=== PATIENT | male | born 1960 | race Caucasian/White ===

== ENCOUNTER 2021-03-18 12:02 | Inpatient (IN) ==
[2021-03-18] MEDS ORDERED: IOPAMIDOL 100 ML BOTTLE IV ONE (12:03)
[2021-03-18] MEDS ORDERED: ONDANSETRON 4 MG/2 ML VIAL IV ONE (12:09)
[2021-03-18] MEDS ORDERED: 0.9 % SODIUM CHLORIDE 1,000 ML IV ONE ×2 (12:09→14:41)
--- NOTE | 2021-03-18 12:36 | Emergency Department Note ---
HPI General Chief complaint: Nausea/Vomiting/Diarrhea Stated complaint: n/v/d Time Seen by Provider: 03/18/21 12:08 Source: patient Mode of arrival: ambulatory Limitations: no limitations History of Present Illness HPI Narrative: This is a 60-year-old male with a medical history significant only for hypothyroidism on levothyroxine who presents with 4 days of nausea and vomiting. No previous abdominal surgeries. No significant complaints of abdominal pain. No complaints of heartburn. Denies chest pain. Denies shortness of breath or cough. Denies fever/chills/sweats. On presentation his O2 sats were high 70s on room air. He is now satting 94% on 2 L oxygen nasal cannula. Was seen by his PCP on 03/13/2021 for complaints of previous 5 days of nausea/vomiting/diarrhea. Covid serologies were negative. He also had a negative Covid antigen test at that time per chart review. His initial Covid swab is negative here, but given his chest x-ray this was repeated and a second swab is positive. Nursing thought that the initial swab was not collected properly due to the patient's nasal cavity being very dry. Patient has mottling to the bilateral lower extremities and petechial rash to the volar aspect of the bilateral forearms. He states that this has been coming and going over the last few months to weeks. He denies a history of peripheral vascular disease or vasculitis. Denies a history of coagulopathies or hypercoagulable state. Related Data Home Medications Medication Instructions Recorded Confirmed levothyroxine 125 mcg capsule 125 mcg PO QDAY 03/13/21 03/18/21 Allergies Allergy/AdvReac Type Severity Reaction Status Date / Time No Known Drug Allergies Allergy Verified 03/18/21 17:03 hay fever Allergy Unknown allergies Uncoded 03/13/21 07:57 Review of Systems ROS ROS Narrative: Narrative: All systems ED: reviewed and negative except as stated. [facility] Narrative Patient History Narrative: Narrative: Medical/Surgical/Family History All Active Problems Prediabetes (Chronic) Wellness examination (Acute) Viral gastroenteritis (Acute) Cellulitis of left leg (Acute) Hypothyroidism (Chronic) Chronic dermatitis (Chronic) History of tobacco abuse (Chronic) History of cervical fracture (Chronic) Medical History Chronic dermatitis Dental abscess History of cervical fracture History of tobacco abuse Hypothyroidism Joint pain (~1999) Prediabetes URI, acute Surgical History No pertinent past surgical history Family History Father Colon cancer Prostate cancer Mother Stroke Social History Smoking Status: Former smoker Alcohol Intake Frequency: does not drink Substance Use: does not use Exam Narrative Narrative: General: AOx3, NAD, nontoxic appearing. Pleasant and conversant. HEENT: PERRLA, EOMI, normocephalic. Moist mucous membranes. Normal facies. Chest: Symmetric, no pain to palpation Respiratory: Bilateral crackles throughout all lung sam. No respiratory distress. Unlabored breathing. Oxygen sats are 88% on 2 L nasal cannula with good Pleth waveform. Heart: Regular rate and rhythm, no murmurs/clicks/rubs. Abdomen: Generalized abdominal pain, no peritoneal signs, non distended, normal bowel tones. No organomegaly. Extremities: Mottling noted to the bilateral lower extremities. Clubbing noted to the bilateral fingers (patient states this is chronic). Bilateral forearms with what appears to be a petechial rash. No LE extremity edema. DP 2+ bilaterally. No venous stasis. Neuro: No focal deficits. Cranial nerves II-XII normal. Skin: Warm dry, no rashes or lesions, no cyanosis. Psych: Normal mood and affect Heme/Lymph: As above General Limitations: no limitations Course Course Course Narrative: 60-year-old male presents with intractable nausea and vomiting x 4 days and hypoxia Reevaluation(s) Reevaluation #1: Obtain chest x-ray, basic lab work, troponin, UA Given his petechial rash will check fibrinogen, coagulation studies, CRP and sed rate Time: 14:15 Reevaluation #2: Chest x-ray is read as normal; however, to me this appears to have bilateral patchy opacities throughout the lung sam. This to be consistent with his clinical exam of diffuse crackles. D-dimer is elevated as well as fibrinogen. A CTA is pending to rule out PE. CBC with slightly low white blood cell count of 4100. Patient's white blood cell count was 3200 on 03/13/2021. Patient is hyponatremic with a sodium of 127. He is receiving IV fluids with normal saline. LFTs are mildly elevated. Troponin is less than 0.01 , and CRP is elevated at 3.8. At this time we will start dexamethasone 6 mg IV. Awaiting CTA and will plan on calling the hospitalist for admission as patient meets inpatient criteria for severe COVID. Vital Signs Vital signs: Vital Signs Temperature 97.3 F 03/18/21 12:04 Pulse Rate 88 03/18/21 12:04 Respiratory Rate 18 03/18/21 12:04 Blood Pressure 156/81 03/18/21 12:04 Pulse Oximetry (%) 81 L 03/18/21 12:04 Temperature 97.2 F 03/18/21 20:01 Pulse Rate 74 03/18/21 22:01 Respiratory Rate 28 H 03/18/21 22:01 Blood Pressure 124/74 03/18/21 22:01 Pulse Oximetry (%) 92 03/18/21 22:01 MDM MDM Narrative Medical decision making narrative: Severe COVID-19 infection Hypoxia Hyponatremia Meets inpatient criteria for admission and initiation of pharmacological therapies for severe COVID-19 infection. Hospitalist has accepted the patient for admission. Lab Data Result diagrams: 03/18/21 12:25 03/18/21 12:25 Labs: Lab Results 03/18/21 03/18/21 03/18/21 Range/Units 12:10 12:10 12:25 WBC 4.1 L (4.5-11.0) K/mcL RBC 5.69 (4.50-5.90) M/mcL Hgb 15.7 (13.5-16.5) g/dL Hct 48.3 (41.0-55.0) % MCV 84.9 (80.0-100.0) fL MCH 27.6 (26.0-34.0) pg MCHC 32.5 (31.0-36.0) g/dL RDW 14.8 H (11.5-14.5) % Plt Count 223 (140-440) K/mcL MPV 10.9 H (7.4-10.4) fL Neut % (Auto) 86.0 H (38.0-78.0) % Lymph % (Auto) 7.4 L (15.0-49.0) % Burke % (Auto) 6.4 (1.0-12.0) % Eos % (Auto) 0 (0.0-7.0) % Baso % (Auto) 0.2 (0.0-2.0) % Lymph # (Auto) 0.30 L (1.50-4.80) K/mcL Burke # (Auto) 0.26 (0.10-0.90) K/mcL Eos # (Auto) 0 (0.00-0.70) K/mcL Baso # (Auto) 0.01 (0.00-0.20) K/mcL Absolute Neutrophils 3.48 (1.80-8.00) K/mcL ESR 10 (0-15) mm/hr PT (11.9-14.5) sec INR (0.9-1.1) Fibrinogen (200-400) mg/dL D-Dimer (0.27-0.50) ug/mL Sodium (133-145) mmol/L Potassium (3.3-5.1) mmol/L Chloride (96-108) mmol/L Carbon Dioxide (22-30) mmol/L Anion Gap (8.0-16.0) BUN (6-20) mg/dL Creatinine (0.7-1.2) mg/dL POC Creatinine 0.8 (0.6-1.2) mg/dL GFR Calculation Glucose (70-105) mg/dL Calcium (8.6-10.4) mg/dL Total Bilirubin (0.1-1.0) mg/dL AST (<40) U/L ALT (<40) U/L Alkaline Phosphatase (39-117) U/L Troponin T (<0.03) ng/mL C-Reactive Protein 3.80 H (0.03-0.80) mg/dL NT-Pro-B Natriuret Pep 529.6 H (<125.0) pg/mL Total Protein (5.9-8.4) gm/dL Albumin (3.2-5.2) gm/dL Globulin (2.2-3.7) gm/dL Albumin/Globulin Ratio (1.0-2.3) Procalcitonin (<0.10) ng/mL Urine Color Urine Appearance (Clear) Urine pH (5.0-9.0) Ur Specific [place] (1.000-1.035) Urine Protein (Negative) mg/dL Urine Glucose (UA) (Negative) mg/dL Urine Ketones (Negative) mg/dL Urine Occult Blood (Negative) mg/dL Urine Nitrate (Negative) Urine Bilirubin (Negative) mg/dL Urine Urobilinogen mg/dL Ur Leukocyte Esterase (Negative) /ug Urine RBC (0-3) /hpf Urine WBC (0-4) /hpf Ur Squamous Epith Cells (0-4) /hpf Urine Bacteria (0) /hpf Urine Mucus (None) /hpf Ur Culture Indicated? 03/18/21 03/18/21 03/18/21 Range/Units 12:25 12:25 12:25 WBC (4.5-11.0) K/mcL RBC (4.50-5.90) M/mcL Hgb (13.5-16.5) g/dL Hct (41.0-55.0) % MCV (80.0-100.0) fL MCH (26.0-34.0) pg MCHC (31.0-36.0) g/dL RDW (11.5-14.5) % Plt Count (140-440) K/mcL MPV (7.4-10.4) fL Neut % (Auto) (38.0-78.0) % Lymph % (Auto) (15.0-49.0) % Burke % (Auto) (1.0-12.0) % Eos % (Auto) (0.0-7.0) % Baso % (Auto) (0.0-2.0) % Lymph # (Auto) (1.50-4.80) K/mcL Burke # (Auto) (0.10-0.90) K/mcL Eos # (Auto) (0.00-0.70) K/mcL Baso # (Auto) (0.00-0.20) K/mcL Absolute Neutrophils (1.80-8.00) K/mcL ESR (0-15) mm/hr PT 12.6 (11.9-14.5) sec INR 0.9 (0.9-1.1) Fibrinogen (200-400) mg/dL D-Dimer 1.31 H (0.27-0.50) ug/mL Sodium 127 L (133-145) mmol/L Potassium 4.1 (3.3-5.1) mmol/L Chloride 88 L (96-108) mmol/L Carbon Dioxide 29 (22-30) mmol/L Anion Gap 10.0 (8.0-16.0) BUN 11 (6-20) mg/dL Creatinine 0.8 (0.7-1.2) mg/dL POC Creatinine (0.6-1.2) mg/dL GFR Calculation 97 Glucose 116 H (70-105) mg/dL Calcium 8.0 L (8.6-10.4) mg/dL Total Bilirubin 0.5 (0.1-1.0) mg/dL AST 63 H (<40) U/L ALT 52 H (<40) U/L Alkaline Phosphatase 139 H (39-117) U/L Troponin T < 0.01 (<0.03) ng/mL C-Reactive Protein (0.03-0.80) mg/dL NT-Pro-B Natriuret Pep (<125.0) pg/mL Total Protein 6.3 (5.9-8.4) gm/dL Albumin 3.1 L (3.2-5.2) gm/dL Globulin 3.2 (2.2-3.7) gm/dL Albumin/Globulin Ratio 1.0 (1.0-2.3) Procalcitonin (<0.10) ng/mL Urine Color Urine Appearance (Clear) Urine pH (5.0-9.0) Ur Specific [place] (1.000-1.035) Urine Protein (Negative) mg/dL Urine Glucose (UA) (Negative) mg/dL Urine Ketones (Negative) mg/dL Urine Occult Blood (Negative) mg/dL Urine Nitrate (Negative) Urine Bilirubin (Negative) mg/dL Urine Urobilinogen mg/dL Ur Leukocyte Esterase (Negative) /ug Urine RBC (0-3) /hpf Urine WBC (0-4) /hpf Ur Squamous Epith Cells (0-4) /hpf Urine Bacteria (0) /hpf Urine Mucus (None) /hpf Ur Culture Indicated? 03/18/21 03/18/21 03/18/21 Range/Units 12:25 12:25 14:35 WBC (4.5-11.0) K/mcL RBC (4.50-5.90) M/mcL Hgb (13.5-16.5) g/dL Hct (41.0-55.0) % MCV (80.0-100.0) fL MCH (26.0-34.0) pg MCHC (31.0-36.0) g/dL RDW (11.5-14.5) % Plt Count (140-440) K/mcL MPV (7.4-10.4) fL Neut % (Auto) (38.0-78.0) % Lymph % (Auto) (15.0-49.0) % Burke % (Auto) (1.0-12.0) % Eos % (Auto) (0.0-7.0) % Baso % (Auto) (0.0-2.0) % Lymph # (Auto) (1.50-4.80) K/mcL Burke # (Auto) (0.10-0.90) K/mcL Eos # (Auto) (0.00-0.70) K/mcL Baso # (Auto) (0.00-0.20) K/mcL Absolute Neutrophils (1.80-8.00) K/mcL ESR (0-15) mm/hr PT (11.9-14.5) sec INR (0.9-1.1) Fibrinogen 501 H (200-400) mg/dL D-Dimer (0.27-0.50) ug/mL Sodium (133-145) mmol/L Potassium (3.3-5.1) mmol/L Chloride (96-108) mmol/L Carbon Dioxide (22-30) mmol/L Anion Gap (8.0-16.0) BUN (6-20) mg/dL Creatinine (0.7-1.2) mg/dL POC Creatinine (0.6-1.2) mg/dL GFR Calculation Glucose (70-105) mg/dL Calcium (8.6-10.4) mg/dL Total Bilirubin (0.1-1.0) mg/dL AST (<40) U/L ALT (<40) U/L Alkaline Phosphatase (39-117) U/L Troponin T (<0.03) ng/mL C-Reactive Protein (0.03-0.80) mg/dL NT-Pro-B Natriuret Pep (<125.0) pg/mL Total Protein (5.9-8.4) gm/dL Albumin (3.2-5.2) gm/dL Globulin (2.2-3.7) gm/dL Albumin/Globulin Ratio (1.0-2.3) Procalcitonin 0.20 H (<0.10) ng/mL Urine Color Yellow Urine Appearance Hazy A (Clear) Urine pH 6.0 (5.0-9.0) Ur Specific [place] 1.046 (1.000-1.035) Urine Protein Negative (Negative) mg/dL Urine Glucose (UA) Negative (Negative) mg/dL Urine Ketones 20 A (Negative) mg/dL Urine Occult Blood 0.03 (Negative) mg/dL Urine Nitrate Negative (Negative) Urine Bilirubin Negative (Negative) mg/dL Urine Urobilinogen 4.0 A mg/dL Ur Leukocyte Esterase Negative (Negative) /ug Urine RBC 3 (0-3) /hpf Urine WBC 5 H (0-4) /hpf Ur Squamous Epith Cells 0 (0-4) /hpf Urine Bacteria None (0) /hpf Urine Mucus Few A (None) /hpf Ur Culture Indicated? No ED POC Tests ED POC Tests: MANISHA - SARS Antigen Positive Discharge Plan Patient/Caregiver Discharge Instructions Pt seen by OPTIONS TRADER/PA only: Yes Patient Disposition: Xfer As Inpt ([facility]) Discharge Date/Time: 03/18/21 16:30
--- NOTE | 2021-03-18 12:39 | XRay Report ---
CLINICAL INFORMATION: hypoxia COMPARISON: None. FINDINGS: Heart size, mediastinum and pulmonary vessels are normal. Lungs are clear. No effusions. Bones soft tissues normal IMPRESSION: Negative Interpreted and Authenticated by: Jovany Anderson 03/18/21
[2021-03-18 13:23] LABS: POC Creatinine 0.8 mg/dL (0.6-1.2)
[2021-03-18 13:24] LABS: Basophils # (Auto) 0.01 K/mcL (0.00-0.20); Basophils % (Auto) 0.2 % (0.0-2.0); Eosinophils # (Auto) 0 K/mcL (0.00-0.70); Eosinophils % (Auto) 0 % (0.0-7.0); Hematocrit 48.3 % (41.0-55.0); Hemoglobin 15.7 g/dL (13.5-16.5); Lymphocytes % (Auto) 7.4 % (15.0-49.0); Mean Cell Volume 84.9 fL (80.0-100.0); Mean Corpuscular HGB Conc 32.5 g/dL (31.0-36.0); Mean Platelet Volume 10.9 fL (7.4-10.4); Monocytes # (Auto) 0.26 K/mcL (0.10-0.90); Monocytes % (Auto) 6.4 % (1.0-12.0); Platelet Count 223 K/mcL (140-440); RBC 5.69 M/mcL (4.50-5.90); Red Cell Distribution Width 14.8 % (11.5-14.5); WBC 4.1 K/mcL (4.5-11.0)
[2021-03-18 13:50] LABS: proBNP 529.6 pg/mL (<125.0)
[2021-03-18 13:51] LABS: ALT/SGPT 52 U/L (<40); AST/SGOT 63 U/L (<40); Albumin 3.1 gm/dL (3.2-5.2); Alkaline Phosphatase 139 U/L (39-117); Bilirubin,Total 0.5 mg/dL (0.1-1.0); Blood Urea Nitrogen 11 mg/dL (6-20); Carbon Dioxide 29 mmol/L (22-30); Chloride 88 mmol/L (96-108); Globulin 3.2 gm/dL (2.2-3.7); Glomerular Filtration Rate 97; Glucose 116 mg/dL (70-105)
[2021-03-18 13:52] LABS: C-Reactive Protein 3.8 mg/dL (0.03-0.80)
[2021-03-18 13:55] LABS: INR 0.9 (0.9-1.1); Prothrombin Time 12.6 sec (11.9-14.5)
[2021-03-18] MEDS ORDERED: DEXAMETHASONE 10 MG/ML VIAL IV ONE (14:07)
--- NOTE | 2021-03-18 14:24 | Cat Scan Report ---
CLINICAL INFORMATION: Hypoxia. Covid positive. COMPARISON: None. TECHNIQUE: 80ml of Isovue-370 were injected intravenously. Using SmartPrep to maximize pulmonary artery opacification, .625mm helical slices were obtained from the lung apices through the lung bases. Following reconstruction, 2.5 mm sagittal, coronal, and axial reformations were processed. The exam was reviewed at mediastinal, lung, and bone windows. The exam was performed using radiation dose optimization techniques including, but not limited to, automated exposure control, adjustment of the mA and/or kV according to patient size and use of iterative reconstruction technique. FINDINGS: Large patchy groundglass infiltrates are seen throughout the periphery of both upper, lower and right middle lobes. Findings compatible with Covid pneumonia. There are no effusions. Mediastinal windows show the heart is normal in size with calcific plaque in the proximal coronary arteries. The pulmonary arteries are normal in diameter and [id number] evidence of adenopathy. Diffuse intimal thickening present in the thoracic aorta which is normal diameter. Mildly enlarged lymph nodes seen in the lower mediastinal regions including the thoracic aortic arch, AP window and pericarinal region. A range up to 12 mm. The esophagus is grossly normal. Thyroid is normal. Bones and soft tissues of the chest wall show no abnormality. Images through the inferior abdomen show no abnormality. IMPRESSION: 1. Large patchy groundglass infiltrates scattered throughout the periphery of both upper, right middle and lower lobes. Findings compatible with Covid pneumonia. It may also represent other infections or aspiration pneumonia. 2. No evidence of pulmonary embolus. Interpreted and Authenticated by: Jovany Anderson 03/18/21
[2021-03-18] MEDS ORDERED: 0.9 % SODIUM CHLORIDE 1,000 ML IV SCH (14:45)
[2021-03-18] MEDS ORDERED: REMDESIVIR 200 MG in 0.9 % SODIUM CHLORIDE 250 ML IV ONE ×2 (14:51→15:00)
--- NOTE | 2021-03-18 14:59 | Internal Med History&Physical ---
HPI History of Present Illness Patient information: Note initiated : 03/18/21 at 2:52 pm Service Date, if different from initiated Date: [] Patient: Jovany Motley a 60 y/o M admitted on for n/v/d. Chief Complaint: [] History of present illness: Mr. Motley is a 60 year old M With a history of hypothyroidism/was in his baseline state of health until roughly 10 days prior to presentation became increasingly short of breath/weakness/nausea vomiting. He continued to work with the symptoms however presented today for evaluation as he is unable to function or get around with usual activities. Initial work-up was consistent with sats in 70's, bilateral multifocal chest infiltrates on CT chest. COVID- 19 swab positive. Patient was started on remdesivir/dexamethasone. Subsequently hospitalist service consulted. At the time of my evaluation patient is alert and oriented. He is on 2 L oxygen. He denies active distress including headache photophobia endorses to rash on the flexor aspect of right forearm Which he frequently experiences but has not been evaluated by outpatient as outpatient. He denies weight loss endorses diarrhea, persistent nausea over the last few days. He endorses to loss of appetite/fatigue/weakness and low-grade fever. Review of systems 10 point review system was performed and is negative except for ones discussed above PFSH PFSH All Active Problems Prediabetes (Chronic) Wellness examination (Acute) Viral gastroenteritis (Acute) Cellulitis of left leg (Acute) Hypothyroidism (Chronic) Chronic dermatitis (Chronic) History of tobacco abuse (Chronic) History of cervical fracture (Chronic) Medical History Chronic dermatitis Dental abscess History of cervical fracture History of tobacco abuse Hypothyroidism Joint pain (~1999) Prediabetes URI, acute Surgical History No pertinent past surgical history Family History Father Colon cancer Prostate cancer Mother Stroke Social History (Updated 03/13/21 @ 08:23 by Driss Cotter PA-C) household members: alone housing: house lives independently: Yes marital status: education level: college service: No occupational status: 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 eating out: 4 or more times/week physical activity: other details: gardening smoking status: Former smoker quit date: 08/23/13 smoking status start date: 08/23/08 smoking status stop date: 08/23/13 alcohol intake frequency: does not drink substance use type: does not use izzy/confucianist: None seatbelt use: always MEDS/ALLERGIES Home Medications and Allergies Home Medications Medication Instructions Recorded Confirmed Type levothyroxine 125 mcg capsule 125 mcg PO QDAY 03/13/21 03/18/21 History Allergies Allergy/AdvReac Type Severity Reaction Status Date / Time No Known Drug Allergies Allergy Verified 03/18/21 17:03 hay fever Allergy Unknown allergies Uncoded 03/13/21 07:57 EXAM Constitutional Vitals: Temp Pulse Resp BP Pulse Ox 97.3 F 90 18 143/78 97 03/18/21 12:04 03/18/21 14:45 03/18/21 14:45 03/18/21 14:31 03/18/21 14:45 Head normocephalic, anxious Oral cavity moist No ear or nose discharge Eye no subconjunctival pallor, movement symmetrical S1-S2 occasionally irregular Labored breathing on 2 L oxygen Nondistended nontender abdomen Lower extremity no cyanosis clubbing or joint swelling Skin no suspicious lesion Psych anxious but no hallucination Neuro normal higher function on limited neuro exam DATA Data Completed and Pending Labs: Labs from last 24 hours 03/18/21 03/18/21 03/18/21 12:25 12:25 12:25 WBC RBC Hgb Hct MCV MCH MCHC RDW Plt Count MPV Neut % (Auto) Lymph % (Auto) Mills % (Auto) Eos % (Auto) Baso % (Auto) Lymph # (Auto) [place] # (Auto) Eos # (Auto) Baso # (Auto) Absolute Neutrophils ESR PT 12.6 INR 0.9 Fibrinogen 501 H D-Dimer 1.31 H Sodium Potassium Chloride Carbon Dioxide Anion Gap BUN Creatinine POC Creatinine GFR Calculation Glucose Calcium Total Bilirubin AST ALT Alkaline Phosphatase Troponin T < 0.01 C-Reactive Protein NT-Pro-B Natriuret Pep Total Protein Albumin Globulin Albumin/Globulin Ratio 03/18/21 03/18/21 03/18/21 12:25 12:25 12:10 WBC 4.1 L RBC 5.69 Hgb 15.7 Hct 48.3 MCV 84.9 MCH 27.6 MCHC 32.5 RDW 14.8 H Plt Count 223 MPV 10.9 H Neut % (Auto) 86.0 H Lymph % (Auto) 7.4 L [place] % (Auto) 6.4 Eos % (Auto) 0 Baso % (Auto) 0.2 Lymph # (Auto) 0.30 L [place] # (Auto) 0.26 Eos # (Auto) 0 Baso # (Auto) 0.01 Absolute Neutrophils 3.48 ESR 10 PT INR Fibrinogen D-Dimer Sodium 127 L Potassium 4.1 Chloride 88 L Carbon Dioxide 29 Anion Gap 10.0 BUN 11 Creatinine 0.8 POC Creatinine GFR Calculation 97 Glucose 116 H Calcium 8.0 L Total Bilirubin 0.5 AST 63 H ALT 52 H Alkaline Phosphatase 139 H Troponin T C-Reactive Protein NT-Pro-B Natriuret Pep Total Protein 6.3 Albumin 3.1 L Globulin 3.2 Albumin/Globulin Ratio 1.0 03/18/21 12:10 WBC RBC Hgb Hct MCV MCH MCHC RDW Plt Count MPV Neut % (Auto) Lymph % (Auto) [place] % (Auto) Eos % (Auto) Baso % (Auto) Lymph # (Auto) [place] # (Auto) Eos # (Auto) Baso # (Auto) Absolute Neutrophils ESR PT INR Fibrinogen D-Dimer Sodium Potassium Chloride Carbon Dioxide Anion Gap BUN Creatinine POC Creatinine 0.8 GFR Calculation Glucose Calcium Total Bilirubin AST ALT Alkaline Phosphatase Troponin T C-Reactive Protein 3.80 H NT-Pro-B Natriuret Pep 529.6 H Total Protein Albumin Globulin Albumin/Globulin Ratio A/P Narrative A/P Narrative: * Acute hypoxic respiratory failure secondary to Covid-continue low-flow oxygen. BiPAP if indicated. * COVID-19 pneumonia. Bilateral multifocal. Start remdesivir/dexamethasone/Tocilizumab/DVT prophylaxis and close monitoring of inflammatory markers * History of hypothyroidism continue thyroxine * Prophylaxis Lovenox Plan * Inpatient monitored bed admit * Supplemental oxygen/contact cautions * Remdesivir/dexamethasone/Tocilizumab * DVT prophylaxis * Empiric antibiotic coverage * Pre-existing medical condition management home medication * PT OT nutrition support * Discharge planning Time Spent With Patient Time: Total time spent is greater than 50% in coordination of care (as documented) at patient's floor/unit and/or counseling patient:
[2021-03-18] MEDS ORDERED: SODIUM CHLORIDE 0.9% IV SCH (15:00)
[2021-03-18] MEDS ORDERED: TOCILIZUMAB IV SCH (15:00)
[2021-03-18 16:10] LABS: Appearance,Urine HAZY (Clear); Bilirubin,Urine Negative (Negative); Color,Urine YELLOW; Culture Indicated,Urine No; Glucose,Urine (UA) Negative (Negative); Ketones,Urine 20 mg/dL (Negative); Leukocyte Esterase,Urine Negative /ug (Negative); Mucus,Urine FEW /hpf; Nitrate,Urine Negative (Negative); Protein,Urine Negative (Negative); Specific Gravity,Urine 1.046 (1.000-1.035); Urine Blood 0.03 mg/dL (Negative); Urine RBC 3 /hpf (0-3); Urine Squamous Epithelial Cell 0 /hpf (0-4); Urine WBC 5 /hpf (0-4)
[2021-03-18] MEDS ORDERED: NEUTRA PHOS 1 PACKET PO PRN (16:50)
[2021-03-18] MEDS ORDERED: POTASSIUM CHLORIDE 40 MEQ in DEXTROSE 5% IN WATER 500 ML IV PRN (16:50)
[2021-03-18] MEDS ORDERED: ONDANSETRON 4 MG/2 ML VIAL IV PRN (16:50)
[2021-03-18] MEDS ORDERED: MAGNESIUM SULFATE 2 GM/50 ML BAG IV PRN (16:50)
[2021-03-18] MEDS ORDERED: ALBUTEROL SULFATE 200 PUFF INHALER INH PRN (16:50)
[2021-03-18] MEDS ORDERED: ONDANSETRON 4 MG ODT TABLET SL PRN (16:50)
[2021-03-18] MEDS ORDERED: POTASSIUM CHLORIDE 20 MEQ PACKET PO PRN (16:50)
[2021-03-18] MEDS ORDERED: ACETAMINOPHEN 650 MG/65 ML BAG IV PRN (16:50)
[2021-03-18] MEDS ORDERED: BISACODYL 10 MG SUPP.RECT PR PRN (16:50)
[2021-03-18] MEDS ORDERED: ACETAMINOPHEN 325 MG TABLET PO PRN (16:50)
[2021-03-18] MEDS ORDERED: POLYETHYLENE GLYCOL 3350 17 GM PACKET PO PRN (16:50)
[2021-03-18] MEDS: AZITHROMYCIN 500 MG in DEXTROSE 5% IN WATER 250 ML IV SCH (17:15)
[2021-03-18] MEDS: PIPERACILLIN SODIUM/TAZOBACTAM 3.375 GM in DEXTROSE 5% IN WATER 50 ML IV SCH ×2 (17:44→23:40)
[2021-03-18] MEDS: 0.9 % SODIUM CHLORIDE 10 ML SYRINGE IV SCH (19:59)
[2021-03-18] MEDS: SENNOSIDES 1 TABLET PO SCH (19:59)
[2021-03-18] MEDS: CYANOCOBALAMIN (VITAMIN B-12) 500 MCG TABLET PO SCH (19:59)
[2021-03-18] MEDS: DOCUSATE SODIUM 100 MG CAPSULE PO SCH (19:59)
[2021-03-18] MEDS ORDERED: HYDROcodone/APAP 10/325MG TABLET PO ONE (22:18)
[2021-03-19] MEDS: PIPERACILLIN SODIUM/TAZOBACTAM 3.375 GM in DEXTROSE 5% IN WATER 50 ML IV SCH ×3 (05:47→17:46)
[2021-03-19] MEDS: 0.9 % SODIUM CHLORIDE 10 ML SYRINGE IV SCH ×3 (05:47→20:17)
[2021-03-19] MEDS: LEVOTHYROXINE 125 MCG TABLET PO SCH (06:39)
[2021-03-19 07:05] LABS: Basophils # (Auto) 0 K/mcL (0.00-0.20); Basophils % (Auto) 0 % (0.0-2.0); Eosinophils # (Auto) 0 K/mcL (0.00-0.70); Eosinophils % (Auto) 0 % (0.0-7.0); Hematocrit 42.9 % (41.0-55.0); Lymphocytes # (Auto) 0.24 K/mcL (1.50-4.80); Mean Cell Volume 85.5 fL (80.0-100.0); Mean Corpuscular HGB Conc 32.6 g/dL (31.0-36.0); Mean Platelet Volume 10.8 fL (7.4-10.4); Platelet Count 256 K/mcL (140-440); RBC 5.02 M/mcL (4.50-5.90)
[2021-03-19 07:25] LABS: ALT/SGPT 44 U/L (<40); AST/SGOT 44 U/L (<40); Albumin 2.6 gm/dL (3.2-5.2); Albumin/Globulin Ratio 0.9 (1.0-2.3); Alkaline Phosphatase 143 U/L (39-117); Bilirubin,Direct < 0.2 mg/dL (0-0.3); Bilirubin,Total 0.4 mg/dL (0.1-1.0); Blood Urea Nitrogen 10 mg/dL (6-20); Calcium 7.5 mg/dL (8.6-10.4); Carbon Dioxide 25 mmol/L (22-30); Chloride 92 mmol/L (96-108); Globulin 2.9 gm/dL (2.2-3.7); Glomerular Filtration Rate 110; Glucose 165 mg/dL (70-105); Lactate Dehydrogenase 455 U/L (135-225); Phosphorous 2.9 mg/dL (2.5-4.5); Triglycerides 123 mg/dL (<150)
[2021-03-19] MEDS: DOCUSATE SODIUM 100 MG CAPSULE PO SCH ×2 (07:32→20:16)
[2021-03-19] MEDS: ENOXAPARIN 40 MG/0.4 ML SYRINGE SQ SCH (08:33)
[2021-03-19] MEDS: DEXAMETHASONE 4 MG TABLET PO SCH (08:33)
[2021-03-19] MEDS: CYANOCOBALAMIN (VITAMIN B-12) 500 MCG TABLET PO SCH ×2 (08:33→20:17)
[2021-03-19] MEDS: MULTIVIT,THER IRON,CA,FA & MIN 1 TABLET PO SCH (08:33)
[2021-03-19] MEDS: AZITHROMYCIN 500 MG in DEXTROSE 5% IN WATER 250 ML IV SCH (08:34)
--- NOTE | 2021-03-19 10:32 | Internal Med Progress Note ---
SUBJECTIVE Subjective Patient information: Note initiated : 03/19/21 at 10:29 am Service Date, if different from initiated Date: [] Patient: Jovany Motley a 60 y/o M admitted on 03/18/21 for n/v/d. Chief Complaint: [] Interval history: Mr. Motley is a 60 year old M With a history of hypothyroidism/was in his baseline state of health until roughly 10 days prior to presentation became increasingly short of breath/weakness/nausea vomiting. He continued to work with the symptoms however presented today for evaluation as he is unable to function or get around with usual activities. Initial work-up was consistent with sats in 70's, bilateral multifocal chest infiltrates on CT chest. COVID-19 swab positive. Patient was started on remdesivir /dexamethasone. Subsequently hospitalist service consulted. At the time of my evaluation patient is alert and oriented. He is on 2 L oxygen. He denies active distress including headache photophobia endorses to rash on the flexor aspect of right forearm Which he frequently experiences but has not been evaluated by outpatient as outpatient. He denies weight loss endorses diarrhea, persistent nausea over the last few days. He endorses to loss of appetite/fatigue/weakness and low-grade fever. 03/19-patient clinically deteriorating since last night. Currently on noninvasive mechanical ventilation on 50% FiO2. ABG 7.4 on 13 L oxygen. Guarded prognosis. Currently on remdesivir/dexamethasone/empiric antibiotic coverage. Discussed treatment plan with patient. No family members present. Remains high risk mortality Constitutional Vitals: Vital Signs Temp Pulse Resp BP Pulse Ox 96.3 F L 81 20 130/80 99 03/19/21 08:01 03/19/21 10:01 03/19/21 10:01 03/19/21 10:01 03/19/21 10:01 Period Temp Pulse Resp BP Sys/Junior Pulse Ox Last 24 Hr 96.3 F-97.4 F 74-105 18-32 111-156/70-93 81-99 Intake and Output 03/18/21 03/19/21 03/19/21 21:59 05:59 13:59 Intake Total 1550 410 660 Output Total 200 950 Balance 1350 -540 660 Weight 80.966 kg on noninvasive mechanical ventilation Alert and respond to commands Anxious Intake & Output: Intake & Output 03/18/21 03/19/21 03/19/21 21:59 05:59 13:59 Intake Total 1550 410 660 Output Total 200 950 Balance 1350 -540 660 Weight 80.966 kg Intake: IV 1550 50 300 Sodium Chloride 0.9% 1,000 ml @ 1000 Wide Open IV [facility] Rx#: [id number] Zithromax 500 mg In Dextrose 5% 250 250 in Water 250 ml @ 250 mls/hr IV DAILY [facility] Rx#:[id number] Zosyn 3.375 gm In Dextrose 5% 50 50 50 in Water 50 ml @ 100 mls/hr IV Q6H [facility] Rx#:[id number] Veklury 200 mg In Sodium 250 Chloride 0.9% 250 ml @ 500 mls/ hr IV ONCE ONE Rx#:[id number] Oral 360 360 Output: Void Amount 950 Stool 200 Other: Meal Nourishment/Supplement Breakfast Percent of Meal Consumed 50% 75% Feeding Ability Independent Nourishment/Supplement name sandwich Urine Appearance Clear Urine Color Dark Yellow Stool Size Moderate Stool Color Brown Stool Consistency Liquid Loose OBJ DATA Labs CBC & Chem 7: 03/19/21 05:25 03/19/21 05:25 Labs: Abnormal Lab Results 03/19/21 03/19/21 03/18/21 05:25 05:25 14:35 WBC 4.0 L RDW 15.0 H MPV 10.8 H Neut % (Auto) 89.0 H Lymph % (Auto) 6.0 L Lymph # (Auto) 0.24 L Fibrinogen D-Dimer Sodium 128 L Chloride 92 L Creatinine 0.6 L Glucose 165 H Uric Acid 2.0 L Calcium 7.5 L Ferritin 1141.0 H GGT 89 H AST 44 H ALT 44 H Alkaline Phosphatase 143 H Lactate Dehydrogenase 455 H C-Reactive Protein NT-Pro-B Natriuret Pep Total Protein 5.5 L Albumin 2.6 L Albumin/Globulin Ratio 0.9 L Procalcitonin Urine Appearance Hazy A Urine Ketones 20 A Urine Urobilinogen 4.0 A Urine WBC 5 H Urine Mucus Few A 03/18/21 03/18/21 03/18/21 12:25 12:25 12:25 WBC RDW MPV Neut % (Auto) Lymph % (Auto) Lymph # (Auto) Fibrinogen 501 H D-Dimer 1.31 H Sodium Chloride Creatinine Glucose Uric Acid Calcium Ferritin GGT AST ALT Alkaline Phosphatase Lactate Dehydrogenase C-Reactive Protein NT-Pro-B Natriuret Pep Total Protein Albumin Albumin/Globulin Ratio Procalcitonin 0.20 H Urine Appearance Urine Ketones Urine Urobilinogen Urine WBC Urine Mucus 03/18/21 03/18/21 03/18/21 12:25 12:25 12:10 WBC 4.1 L RDW 14.8 H MPV 10.9 H Neut % (Auto) 86.0 H Lymph % (Auto) 7.4 L Lymph # (Auto) 0.30 L Fibrinogen D-Dimer Sodium 127 L Chloride 88 L Creatinine Glucose 116 H Uric Acid Calcium 8.0 L Ferritin GGT AST 63 H ALT 52 H Alkaline Phosphatase 139 H Lactate Dehydrogenase C-Reactive Protein 3.80 H NT-Pro-B Natriuret Pep 529.6 H Total Protein Albumin 3.1 L Albumin/Globulin Ratio Procalcitonin Urine Appearance Urine Ketones Urine Urobilinogen Urine WBC Urine Mucus Meds: Medications Acetaminophen (Acetaminophen 325 Mg Tablet) 650 mg PO Q4-6HP PRN; Protocol PRN Reason: Per Pain Protocol/Fever > 101 Albuterol Sulfate (Albuterol Sulfate 200 Puff Inhaler) 1 - 2 puff INH Q4HP PRN PRN Reason: Shortness Of Breath Bisacodyl (Bisacodyl 10 Mg Supp.Rect) 10 mg AL Q2-3DAYS PRN PRN Reason: Constipation Cyanocobalamin (Cyanocobalamin (Vitamin B-12) 500 Mcg Tablet) 1,000 mcg PO BID [facility] Stop: 03/23/21 09:01 Last Admin: 03/19/21 08:33 Dose: 1,000 mcg Documented by: Dexamethasone (Dexamethasone 4 Mg Tablet) 6 mg PO DAILY [facility] Last Admin: 03/19/21 08:33 Dose: 6 mg Documented by: Docusate Sodium (Docusate Sodium 100 Mg Capsule) 100 mg PO BID [facility] Last Admin: 03/19/21 07:32 Dose: Not Given Documented by: Enoxaparin Sodium (Enoxaparin 40 Mg/0.4 Ml Syringe) 40 mg SQ DAILY [facility] Last Admin: 03/19/21 08:33 Dose: 40 mg Documented by: Guaifenesin/Codeine Phosphate (Guaifenesin/Codeine 10 Ml Udc) 10 ml PO Q4HP PRN PRN Reason: Cough Potassium Chloride 40 meq/ (Dextrose) 520 mls @ 130 mls/hr IV UD PRN PRN Reason: K+ = or < 3.5 Acetaminophen (Ofirmev) 650 mg in 65 mls @ 130 mls/hr IV Q6HP PRN; Protocol PRN Reason: Per Pain Protocol/Fever > 101 Magnesium Sulfate (Magnesium Sulfate) 2 gm in 50 mls @ 50 mls/hr IV UD PRN PRN Reason: MG = or < 1.7 Piperacillin Sod/Tazobactam (Sod 3.375 gm/ Dextrose) 50 mls @ 100 mls/hr IV Q6H [facility]; Protocol Last Infusion: 03/19/21 06:40 Dose: Infused Documented by: Azithromycin 500 mg/ Dextrose 250 mls @ 250 mls/hr IV DAILY [facility]; Protocol Stop: 03/20/21 09:59 Last Infusion: 03/19/21 10:10 Dose: Infused Documented by: REMDESIVIR 100 mg/ Sodium (Chloride) 250 mls @ 500 mls/hr IV DAILY@1100 [facility] Stop: 03/22/21 11:29 Iron Carb/Multivit/[place]/Folic Acid (Multivit,Ther Iron,Ca,Fa & Min 1 Tablet) 1 tab PO DAILY [facility] Last Admin: 03/19/21 08:33 Dose: 1 tab Documented by: Levothyroxine Sodium (Levothyroxine 125 Mcg Tablet) 125 mcg PO QAMAC [facility] Last Admin: 03/19/21 06:39 Dose: 125 mcg Documented by: Melatonin (Melatonin 3 Mg Tablet) 3 mg PO HSP PRN PRN Reason: Insomnia Ondansetron HCl (Ondansetron 4 Mg Odt Tablet) 4 mg SL Q4-6HP PRN; Protocol PRN Reason: Nausea And Vomiting Ondansetron HCl (Ondansetron 4 Mg/2 Ml Vial) 4 mg IV Q4-6HP PRN; Protocol PRN Reason: Nausea And Vomiting Polyethylene Glycol (Polyethylene Glycol 3350 17 Gm Packet) 17 gm PO DAILYP PRN PRN Reason: Constipation Potassium Chloride (Potassium Chloride 20 Meq Packet) 40 meq PO DAILYP PRN PRN Reason: K+ < 3.5 Potassium/Phosphorus/Sodium (Neutra Phos 1 Packet) 2 packet PO ONCE PRN PRN Reason: For phosphorus less than 2.5 Senna (Sennosides 1 Tablet) 1 tab PO HS [facility] Last Admin: 03/18/21 19:59 Dose: Not Given Documented by: Sodium Chloride (0.9 % Sodium Chloride 10 Ml Syringe) 10 ml IV Q8 [facility] Last Admin: 03/19/21 05:47 Dose: 10 ml Documented by: A/P Narrative A/P Narrative: * Acute hypoxic respiratory failure secondary to Covid-currently on noninvasive mechanical ventilation due to deteriorating status. ABG 7.4 on 13 L oxygen. Large AA gradient. * COVID-19 pneumonia. Bilateral multifocal. Continue remdesivir/dexamethasone/Tocilizumab unavailable at our facility/DVT prophylaxis * History of hypothyroidism continue thyroxine * Prophylaxis Lovenox Plan * Remdesivir/dexamethasone * Guarded prognosis based on Ravena II score * Continue empiric antibiotic coverage * Pre-existing medical condition management home medication * PT OT nutrition support Critical care time spent in excess of 35 minutes QUALITY VTE Deep Vein Thrombosis/Pulmonary Embolism Present on Admission: No
[2021-03-19] MEDS: REMDESIVIR 100 MG in 0.9 % SODIUM CHLORIDE 250 ML IV SCH (11:05)
[2021-03-19] MEDS: SENNOSIDES 1 TABLET PO SCH (20:16)
[2021-03-19] MEDS: LORazepam 2 MG/ML VIAL IV PRN (20:19)
[2021-03-20] MEDS: PIPERACILLIN SODIUM/TAZOBACTAM 3.375 GM in DEXTROSE 5% IN WATER 50 ML IV SCH ×4 (00:51→17:00)
[2021-03-20] MEDS: LORazepam 2 MG/ML VIAL IV PRN ×2 (04:58→21:37)
[2021-03-20] MEDS: 0.9 % SODIUM CHLORIDE 10 ML SYRINGE IV SCH ×3 (06:02→21:37)
[2021-03-20 06:30] LABS: Basophils # (Auto) 0.01 K/mcL (0.00-0.20); Basophils % (Auto) 0.2 % (0.0-2.0); Eosinophils # (Auto) 0 K/mcL (0.00-0.70); Eosinophils % (Auto) 0 % (0.0-7.0); Hematocrit 44.6 % (41.0-55.0); Hemoglobin 14.6 g/dL (13.5-16.5); Lymphocytes # (Auto) 0.41 K/mcL (1.50-4.80); Lymphocytes % (Auto) 6.8 % (15.0-49.0); Mean Cell Volume 84.2 fL (80.0-100.0); Mean Corpuscular HGB Conc 32.7 g/dL (31.0-36.0); Mean Platelet Volume 10.5 fL (7.4-10.4); Monocytes # (Auto) 0.62 K/mcL (0.10-0.90); Monocytes % (Auto) 10.2 % (1.0-12.0); Neutrophils % (Auto) 82.8 % (38.0-78.0); Platelet Count 308 K/mcL (140-440); Red Cell Distribution Width 14.9 % (11.5-14.5); WBC 6.1 K/mcL (4.5-11.0)
--- NOTE | 2021-03-20 06:52 | XRay Report ---
CLINICAL INFORMATION: Dyspnea COMPARISON: 03/18/[address] chest film [address] CT 03/18/2021 TECHNIQUE: Portable FINDINGS: The heart size, mediastinum and pulmonary vessels are unremarkable. The known large patchy groundglass infiltrates throughout the periphery of both lungs are very poorly visualized on plain film. No significant change since the prior plain film.. There are no effusions. The bones and soft tissues are within normal limits. IMPRESSION: The known large groundglass infiltrate, throughout the periphery of both lungs, seen on CT are very poorly visualized on plain film due to lack of radiographic density. No change from prior plain film. Interpreted and Authenticated by: Jovany Anderson 03/20/21
[2021-03-20 06:58] LABS: ALT/SGPT 42 U/L (<40); AST/SGOT 34 U/L (<40); Albumin 2.8 gm/dL (3.2-5.2); Alkaline Phosphatase 141 U/L (39-117); Bilirubin,Direct < 0.2 mg/dL (0-0.3); Bilirubin,Total 0.4 mg/dL (0.1-1.0); Blood Urea Nitrogen 15 mg/dL (6-20); Calcium 7.7 mg/dL (8.6-10.4); Carbon Dioxide 26 mmol/L (22-30); Chloride 97 mmol/L (96-108); Globulin 2.8 gm/dL (2.2-3.7); Glomerular Filtration Rate 110; Glucose 126 mg/dL (70-105); Lactate Dehydrogenase 437 U/L (135-225); Phosphorous 2.9 mg/dL (2.5-4.5); Triglycerides 121 mg/dL (<150); Uric Acid 1.6 mg/dL (2.5-8.0)
[2021-03-20] MEDS: DOCUSATE SODIUM 100 MG CAPSULE PO SCH ×3 (08:50→20:39)
[2021-03-20] MEDS: LEVOTHYROXINE 125 MCG TABLET PO SCH (08:50)
[2021-03-20] MEDS: ENOXAPARIN 40 MG/0.4 ML SYRINGE SQ SCH ×2 (08:50→20:38)
[2021-03-20] MEDS: DEXAMETHASONE 4 MG TABLET PO SCH (08:50)
[2021-03-20] MEDS: AZITHROMYCIN 500 MG in DEXTROSE 5% IN WATER 250 ML IV SCH (08:51)
[2021-03-20] MEDS: CYANOCOBALAMIN (VITAMIN B-12) 500 MCG TABLET PO SCH ×2 (08:51→20:38)
[2021-03-20] MEDS: MULTIVIT,THER IRON,CA,FA & MIN 1 TABLET PO SCH (08:51)
--- NOTE | 2021-03-20 11:33 | Internal Med Progress Note ---
SUBJECTIVE Subjective Patient information: Note initiated : 03/20/21 at 11:27 am Service Date, if different from initiated Date: [] Patient: Jovany Motley 60 y/o M admitted on 03/18/21 for n/v/d. Chief Complaint: [] Interval history: Mr. Motley is a 60 year old M With a history of hypothyroidism/was in his baseline state of health until roughly 10 days prior to presentation became increasingly short of breath/weakness/nausea vomiting. He continued to work with the symptoms however presented today for evaluation as he is unable to function or get around with usual activities. Initial work-up was consistent with sats in 70's, bilateral multifocal chest infiltrates on CT chest. COVID-19 swab positive. Patient was started on remdesivir /dexamethasone. Subsequently hospitalist service consulted. At the time of my evaluation patient is alert and oriented. He is on 2 L oxygen. He denies active distress including headache photophobia endorses to rash on the flexor aspect of right forearm Which he frequently experiences but has not been evaluated by outpatient as outpatient. He denies weight loss endorses diarrhea, persistent nausea over the last few days. He endorses to loss of appetite/fatigue/weakness and low-grade fever. 03/19-patient clinically deteriorating since last night. Currently on noninvasive mechanical ventilation on 50% FiO2. ABG 7.4 on 13 L oxygen. Guarded prognosis. Currently on remdesivir/dexamethasone/empiric antibiotic coverage. Discussed treatment plan with patient. No family members present. Remains high risk mortality 03/20-patient doing better currently on 50% FiO2. Interval chest imaging bilateral infiltrates. On remdesivir/dexamethasone. Start gentle diuresis. Stable labs, white count 6.1, elevated fibrinogen/D-dimer, increased Lovenox to twice daily, sodium improved to 132 LFTs stable, Constitutional Vitals: Vital Signs Temp Pulse Resp BP Pulse Ox 97.7 F 72 20 129/76 95 03/20/21 09:30 03/20/21 10:19 03/20/21 10:19 03/20/21 10:01 03/20/21 10:19 Period Temp Pulse Resp BP Sys/Junior Pulse Ox Last 24 Hr 97.1 F-98.3 F 61-87 13-33 89-153/53-83 87-100 Intake and Output 03/19/21 03/20/21 03/20/21 21:59 05:59 13:59 Intake Total 530 50 100 Output Total 400 675 Balance 130 -625 100 Weight 80.195 kg On BiPAP at 50% FiO2 Anxiety requiring benzodiazepine No lymphedema Crackles bases Intake & Output: Intake & Output 03/19/21 03/20/21 03/20/21 21:59 05:59 13:59 Intake Total 530 50 100 Output Total 400 675 Balance 130 -625 100 Weight 80.195 kg Intake: IV 50 50 50 Zosyn 3.375 gm In Dextrose 5% 50 50 50 in Water 50 ml @ 100 mls/hr IV Q6H [facility] Rx#:[id number] Oral 480 0 50 Output: Void Amount 400 675 Other: Meal Dinner Breakfast Percent of Meal Consumed 100% Refused Feeding Ability Independent Urine Appearance Clear Clear Urine Color Dark Yellow Dark Yellow Urine Odor Normal Normal OBJ DATA Labs CBC & Chem 7: 03/20/21 05:15 03/20/21 05:15 Labs: Abnormal Lab Results 03/20/21 03/20/21 03/19/21 05:15 05:15 05:25 WBC RDW 14.9 H MPV 10.5 H Neut % (Auto) 82.8 H Lymph % (Auto) 6.8 L Lymph # (Auto) 0.41 L Fibrinogen D-Dimer Sodium 132 L 128 L Chloride 92 L Creatinine 0.6 L 0.6 L Glucose 126 H 165 H Uric Acid 1.6 L 2.0 L Calcium 7.7 L 7.5 L Ferritin 1141.0 H GGT 93 H 89 H AST 44 H ALT 42 H 44 H Alkaline Phosphatase 141 H 143 H Lactate Dehydrogenase 437 H 455 H C-Reactive Protein NT-Pro-B Natriuret Pep Total Protein 5.6 L 5.5 L Albumin 2.8 L 2.6 L Albumin/Globulin Ratio 0.9 L Procalcitonin Urine Appearance Urine Ketones Urine Urobilinogen Urine WBC Urine Mucus 03/19/21 03/18/21 03/18/21 05:25 14:35 12:25 WBC 4.0 L RDW 15.0 H MPV 10.8 H Neut % (Auto) 89.0 H Lymph % (Auto) 6.0 L Lymph # (Auto) 0.24 L Fibrinogen D-Dimer Sodium Chloride Creatinine Glucose Uric Acid Calcium Ferritin GGT AST ALT Alkaline Phosphatase Lactate Dehydrogenase C-Reactive Protein NT-Pro-B Natriuret Pep Total Protein Albumin Albumin/Globulin Ratio Procalcitonin 0.20 H Urine Appearance Hazy A Urine Ketones 20 A Urine Urobilinogen 4.0 A Urine WBC 5 H Urine Mucus Few A 03/18/21 03/18/21 03/18/21 12:25 12:25 12:25 WBC RDW MPV Neut % (Auto) Lymph % (Auto) Lymph # (Auto) Fibrinogen 501 H D-Dimer 1.31 H Sodium 127 L Chloride 88 L Creatinine Glucose 116 H Uric Acid Calcium 8.0 L Ferritin GGT AST 63 H ALT 52 H Alkaline Phosphatase 139 H Lactate Dehydrogenase C-Reactive Protein NT-Pro-B Natriuret Pep Total Protein Albumin 3.1 L Albumin/Globulin Ratio Procalcitonin Urine Appearance Urine Ketones Urine Urobilinogen Urine WBC Urine Mucus 03/18/21 03/18/21 12:25 12:10 WBC 4.1 L RDW 14.8 H MPV 10.9 H Neut % (Auto) 86.0 H Lymph % (Auto) 7.4 L Lymph # (Auto) 0.30 L Fibrinogen D-Dimer Sodium Chloride Creatinine Glucose Uric Acid Calcium Ferritin GGT AST ALT Alkaline Phosphatase Lactate Dehydrogenase C-Reactive Protein 3.80 H NT-Pro-B Natriuret Pep 529.6 H Total Protein Albumin Albumin/Globulin Ratio Procalcitonin Urine Appearance Urine Ketones Urine Urobilinogen Urine WBC Urine Mucus Meds: Medications Acetaminophen (Acetaminophen 325 Mg Tablet) 650 mg PO Q4-6HP PRN; Protocol PRN Reason: Per Pain Protocol/Fever > 101 Albuterol Sulfate (Albuterol Sulfate 200 Puff Inhaler) 1 - 2 puff INH Q4HP PRN PRN Reason: Shortness Of Breath Bisacodyl (Bisacodyl 10 Mg Supp.Rect) 10 mg IN Q2-3DAYS PRN PRN Reason: Constipation Cyanocobalamin (Cyanocobalamin (Vitamin B-12) 500 Mcg Tablet) 1,000 mcg PO BID [facility] Stop: 03/23/21 09:01 Last Admin: 03/20/21 08:51 Dose: 1,000 mcg Documented by: Dexamethasone (Dexamethasone 4 Mg Tablet) 6 mg PO DAILY [facility] Last Admin: 03/20/21 08:50 Dose: 6 mg Documented by: Docusate Sodium (Docusate Sodium 100 Mg Capsule) 100 mg PO BID [facility] Last Admin: 03/20/21 09:41 Dose: Not Given Documented by: Enoxaparin Sodium (Enoxaparin 40 Mg/0.4 Ml Syringe) 40 mg SQ DAILY [facility] Last Admin: 03/20/21 08:50 Dose: 40 mg Documented by: Guaifenesin/Codeine Phosphate (Guaifenesin/Codeine 10 Ml Udc) 10 ml PO Q4HP PRN PRN Reason: Cough Potassium Chloride 40 meq/ (Dextrose) 520 mls @ 130 mls/hr IV UD PRN PRN Reason: K+ = or < 3.5 Acetaminophen (Ofirmev) 650 mg in 65 mls @ 130 mls/hr IV Q6HP PRN; Protocol PRN Reason: Per Pain Protocol/Fever > 101 Magnesium Sulfate (Magnesium Sulfate) 2 gm in 50 mls @ 50 mls/hr IV UD PRN PRN Reason: MG = or < 1.7 Piperacillin Sod/Tazobactam (Sod 3.375 gm/ Dextrose) 50 mls @ 100 mls/hr IV Q6H [facility]; Protocol Last Infusion: 03/20/21 06:00 Dose: Infused Documented by: REMDESIVIR 100 mg/ Sodium (Chloride) 250 mls @ 500 mls/hr IV DAILY@1100 [facility] Stop: 03/22/21 11:29 Last Infusion: 03/19/21 11:38 Dose: Infused Documented by: Iron Carb/Multivit/[place] [employer]/Folic Acid (Multivit,Ther Iron,Ca,Fa & Min 1 Tablet) 1 tab PO DAILY [facility] Last Admin: 03/20/21 08:51 Dose: 1 tab Documented by: Levothyroxine Sodium (Levothyroxine 125 Mcg Tablet) 125 mcg PO QAMAC [facility] Last Admin: 03/20/21 08:50 Dose: 125 mcg Documented by: Lorazepam (Lorazepam 2 Mg/Ml Vial) 1 - 2 mg IV Q4HP PRN PRN Reason: ANXIETY/SEDATION Last Admin: 03/20/21 04:58 Dose: 2 mg Documented by: Melatonin (Melatonin 3 Mg Tablet) 3 mg PO HSP PRN PRN Reason: Insomnia Ondansetron HCl (Ondansetron 4 Mg Odt Tablet) 4 mg SL Q4-6HP PRN; Protocol PRN Reason: Nausea And Vomiting Ondansetron HCl (Ondansetron 4 Mg/2 Ml Vial) 4 mg IV Q4-6HP PRN; Protocol PRN Reason: Nausea And Vomiting Polyethylene Glycol (Polyethylene Glycol 3350 17 Gm Packet) 17 gm PO DAILYP PRN PRN Reason: Constipation Potassium Chloride (Potassium Chloride 20 Meq Packet) 40 meq PO DAILYP PRN PRN Reason: K+ < 3.5 Potassium/Phosphorus/Sodium (Neutra Phos 1 Packet) 2 packet PO ONCE PRN PRN Reason: For phosphorus less than 2.5 Senna (Sennosides 1 Tablet) 1 tab PO HS [facility] Last Admin: 03/19/21 20:16 Dose: Not Given Documented by: Sodium Chloride (0.9 % Sodium Chloride 10 Ml Syringe) 10 ml IV Q8 [facility] Last Admin: 03/20/21 06:02 Dose: 10 ml Documented by: A/P Narrative A/P Narrative: * Acute hypoxic respiratory failure secondary to Covid-currently on noninvasive mechanical ventilation FiO2 50%. Remains high risk mortality * COVID-19 pneumonia. Bilateral multifocal. Gradual improvement noted on remdesivir/dexamethasone/Tocilizumab unavailable at our facility/DVT prophylaxis * Hyponatremia-gradually improving. * History of hypothyroidism continue thyroxine * Prophylaxis Lovenox Plan * Remdesivir/dexamethasone * Start gentle diuresis * Increase Lovenox to twice daily * Attempt prone ventilation/pulmonary toilet * Guarded prognosis based on Hawkins II score * DC empiric antibiotics in 24 hours * Pre-existing medical condition management home medication * PT OT nutrition support Critical care time spent in excess of 35 minutes Time Spent With Patient Time: Total time spent is greater than 50% in coordination of care (as documented) at patient's floor/unit and/or counseling patient: QUALITY VTE Deep Vein Thrombosis/Pulmonary Embolism Present on Admission: No
[2021-03-20] MEDS: FUROSEMIDE 20 MG/2 ML VIAL IV SCH ×2 (11:50→17:00)
[2021-03-20] MEDS: REMDESIVIR 100 MG in 0.9 % SODIUM CHLORIDE 250 ML IV SCH (11:50)
[2021-03-20] MEDS: MELATONIN 3 MG TABLET PO PRN (20:38)
[2021-03-20] MEDS: SENNOSIDES 1 TABLET PO SCH (20:39)
[2021-03-21] MEDS: PIPERACILLIN SODIUM/TAZOBACTAM 3.375 GM in DEXTROSE 5% IN WATER 50 ML IV SCH ×2 (00:12→05:52)
[2021-03-21] MEDS: 0.9 % SODIUM CHLORIDE 10 ML SYRINGE IV SCH ×3 (05:53→21:36)
[2021-03-21] MEDS: DOCUSATE SODIUM 100 MG CAPSULE PO SCH ×2 (07:29→21:35)
[2021-03-21 08:01] LABS: Basophils # (Auto) 0.01 K/mcL (0.00-0.20); Basophils % (Auto) 0.2 % (0.0-2.0); Eosinophils # (Auto) 0 K/mcL (0.00-0.70); Eosinophils % (Auto) 0 % (0.0-7.0); Hemoglobin 14.2 g/dL (13.5-16.5); Lymphocytes # (Auto) 0.44 K/mcL (1.50-4.80); Lymphocytes % (Auto) 6.7 % (15.0-49.0); Mean Cell Volume 84.9 fL (80.0-100.0); Mean Corpuscular HGB Conc 32.3 g/dL (31.0-36.0); Mean Platelet Volume 10.6 fL (7.4-10.4); Monocytes # (Auto) 0.65 K/mcL (0.10-0.90); Monocytes % (Auto) 9.9 % (1.0-12.0); Neutrophils % (Auto) 83.2 % (38.0-78.0); Platelet Count 360 K/mcL (140-440); RBC 5.18 M/mcL (4.50-5.90); WBC 6.6 K/mcL (4.5-11.0)
[2021-03-21] MEDS: DEXAMETHASONE 4 MG TABLET PO SCH (08:06)
[2021-03-21] MEDS: CYANOCOBALAMIN (VITAMIN B-12) 500 MCG TABLET PO SCH ×2 (08:06→21:35)
[2021-03-21] MEDS: MULTIVIT,THER IRON,CA,FA & MIN 1 TABLET PO SCH (08:06)
[2021-03-21] MEDS: LEVOTHYROXINE 125 MCG TABLET PO SCH (08:06)
[2021-03-21] MEDS: FUROSEMIDE 20 MG/2 ML VIAL IV SCH ×2 (08:07→09:18)
[2021-03-21] MEDS: guaiFENesin/CODEINE 10 ML UDC PO PRN (08:07)
[2021-03-21] MEDS: ENOXAPARIN 40 MG/0.4 ML SYRINGE SQ SCH ×2 (08:07→21:35)
[2021-03-21 08:26] LABS: ALT/SGPT 38 U/L (<40); AST/SGOT 28 U/L (<40); Albumin 2.6 gm/dL (3.2-5.2); Albumin/Globulin Ratio 0.9 (1.0-2.3); Alkaline Phosphatase 131 U/L (39-117); Bilirubin,Direct 0.2 mg/dL (<0.3); Bilirubin,Total 0.5 mg/dL (0.1-1.0); Blood Urea Nitrogen 15 mg/dL (6-20); Calcium 7.9 mg/dL (8.6-10.4); Carbon Dioxide 27 mmol/L (22-30); Chloride 95 mmol/L (96-108); Glomerular Filtration Rate 110; Glucose 90 mg/dL (70-105); Lactate Dehydrogenase 415 U/L (135-225); Triglycerides 131 mg/dL (<150); Uric Acid 2.3 mg/dL (2.5-8.0)
--- NOTE | 2021-03-21 10:22 | Internal Med Progress Note ---
SUBJECTIVE Subjective Patient information: Note initiated : 03/21/21 at 10:20 am Service Date, if different from initiated Date: [] Patient: Jovany Motley 60 y/o M admitted on 03/18/21 for n/v/d. Chief Complaint: [] Interval history: Mr. Motley is a 60 year old M With a history of hypothyroidism/was in his baseline state of health until roughly 10 days prior to presentation became increasingly short of breath/weakness/nausea vomiting. He continued to work with the symptoms however presented today for evaluation as he is unable to function or get around with usual activities. Initial work-up was consistent with sats in 70's, bilateral multifocal chest infiltrates on CT chest. COVID-19 swab positive. Patient was started on remdesivir /dexamethasone. Subsequently hospitalist service consulted. At the time of my evaluation patient is alert and oriented. He is on 2 L oxygen. He denies active distress including headache photophobia endorses to rash on the flexor aspect of right forearm Which he frequently experiences but has not been evaluated by outpatient as outpatient. He denies weight loss endorses diarrhea, persistent nausea over the last few days. He endorses to loss of appetite/fatigue/weakness and low-grade fever. 03/19-patient clinically deteriorating since last night. Currently on noninvasive mechanical ventilation on 50% FiO2. ABG 7.4 on 13 L oxygen. Guarded prognosis. Currently on remdesivir/dexamethasone/empiric antibiotic coverage. Discussed treatment plan with patient. No family members present. Remains high risk mortality 03/20-patient doing better currently on 50% FiO2. Interval chest imaging bilateral infiltrates. On remdesivir/dexamethasone. Start gentle diuresis. Stable labs, white count 6.1, elevated fibrinogen/D-dimer, increased Lovenox to twice daily, sodium improved to 132 LFTs stable 03/21-patient doing a lot better. Overnight on BiPAP and now on trial off on 4 to 5 L oxygen. Responding well to diuretics. Tolerating diet. Feels a lot better. Continue remdesivir/dexamethasone. Will likely transition to medical floor in 24 hours once off BiPAP. No overnight fever chills. Ambulating. Mentation at baseline. Stable hemodynamics and labs. Constitutional Vitals: Vital Signs Temp Pulse Resp BP Pulse Ox 97.6 F 76 25 H 113/58 97 03/21/21 08:00 03/21/21 08:00 03/21/21 08:00 03/21/21 08:00 03/21/21 08:00 Period Temp Pulse Resp BP Sys/Junior Pulse Ox Last 24 Hr 96.8 F-98.3 F 62-90 18-36 97-154/58-91 90-100 Intake and Output 03/20/21 03/21/21 03/21/21 21:59 05:59 13:59 Intake Total 290 50 50 Output Total 1275 450 275 Balance -985 -400 -225 Weight 82.418 kg alert oriented. Nonlabored breathing Off BiPAP now on 4 to 5 L oxygen No lymphedema Anxiety Intake & Output: Intake & Output 03/20/21 03/21/21 03/21/21 21:59 05:59 13:59 Intake Total 290 50 50 Output Total 1275 450 275 Balance -985 -400 -225 Weight 82.418 kg Intake: IV 50 50 50 Zosyn 3.375 gm In Dextrose 5% 50 50 50 in Water 50 ml @ 100 mls/hr IV Q6H [facility] Rx#:[id number] Oral 240 Output: Void Amount 1275 450 275 Other: Meal Dinner Percent of Meal Consumed 50% Feeding Ability Independent Urine Appearance Clear Clear Clear Urine Color Bright Yellow Bright Yellow Dark Yellow OBJ DATA Labs CBC & Chem 7: 03/21/21 05:00 03/21/21 05:00 Labs: Abnormal Lab Results 03/21/21 03/21/21 03/20/21 05:00 05:00 05:15 WBC RDW 15.0 H MPV 10.6 H Neut % (Auto) 83.2 H Lymph % (Auto) 6.7 L Lymph # (Auto) 0.44 L Fibrinogen D-Dimer Sodium 132 L Chloride 95 L Creatinine 0.6 L 0.6 L Glucose 126 H Uric Acid 2.3 L 1.6 L Calcium 7.9 L 7.7 L Ferritin GGT 91 H 93 H AST ALT 42 H Alkaline Phosphatase 131 H 141 H Lactate Dehydrogenase 415 H 437 H C-Reactive Protein NT-Pro-B Natriuret Pep Total Protein 5.6 L 5.6 L Albumin 2.6 L 2.8 L Albumin/Globulin Ratio 0.9 L Procalcitonin Urine Appearance Urine Ketones Urine Urobilinogen Urine WBC Urine Mucus 03/20/21 03/19/21 03/19/21 05:15 05:25 05:25 WBC 4.0 L RDW 14.9 H 15.0 H MPV 10.5 H 10.8 H Neut % (Auto) 82.8 H 89.0 H Lymph % (Auto) 6.8 L 6.0 L Lymph # (Auto) 0.41 L 0.24 L Fibrinogen D-Dimer Sodium 128 L Chloride 92 L Creatinine 0.6 L Glucose 165 H Uric Acid 2.0 L Calcium 7.5 L Ferritin 1141.0 H GGT 89 H AST 44 H ALT 44 H Alkaline Phosphatase 143 H Lactate Dehydrogenase 455 H C-Reactive Protein NT-Pro-B Natriuret Pep Total Protein 5.5 L Albumin 2.6 L Albumin/Globulin Ratio 0.9 L Procalcitonin Urine Appearance Urine Ketones Urine Urobilinogen Urine WBC Urine Mucus 03/18/21 03/18/21 03/18/21 14:35 12:25 12:25 WBC RDW MPV Neut % (Auto) Lymph % (Auto) Lymph # (Auto) Fibrinogen 501 H D-Dimer Sodium Chloride Creatinine Glucose Uric Acid Calcium Ferritin GGT AST ALT Alkaline Phosphatase Lactate Dehydrogenase C-Reactive Protein NT-Pro-B Natriuret Pep Total Protein Albumin Albumin/Globulin Ratio Procalcitonin 0.20 H Urine Appearance Hazy A Urine Ketones 20 A Urine Urobilinogen 4.0 A Urine WBC 5 H Urine Mucus Few A 03/18/21 03/18/21 03/18/21 12:25 12:25 12:25 WBC 4.1 L RDW 14.8 H MPV 10.9 H Neut % (Auto) 86.0 H Lymph % (Auto) 7.4 L Lymph # (Auto) 0.30 L Fibrinogen D-Dimer 1.31 H Sodium 127 L Chloride 88 L Creatinine Glucose 116 H Uric Acid Calcium 8.0 L Ferritin GGT AST 63 H ALT 52 H Alkaline Phosphatase 139 H Lactate Dehydrogenase C-Reactive Protein NT-Pro-B Natriuret Pep Total Protein Albumin 3.1 L Albumin/Globulin Ratio Procalcitonin Urine Appearance Urine Ketones Urine Urobilinogen Urine WBC Urine Mucus 03/18/21 12:10 WBC RDW MPV Neut % (Auto) Lymph % (Auto) Lymph # (Auto) Fibrinogen D-Dimer Sodium Chloride Creatinine Glucose Uric Acid Calcium Ferritin GGT AST ALT Alkaline Phosphatase Lactate Dehydrogenase C-Reactive Protein 3.80 H NT-Pro-B Natriuret Pep 529.6 H Total Protein Albumin Albumin/Globulin Ratio Procalcitonin Urine Appearance Urine Ketones Urine Urobilinogen Urine WBC Urine Mucus Meds: Medications Acetaminophen (Acetaminophen 325 Mg Tablet) 650 mg PO Q4-6HP PRN; Protocol PRN Reason: Per Pain Protocol/Fever > 101 Albuterol Sulfate (Albuterol Sulfate 200 Puff Inhaler) 1 - 2 puff INH Q4HP PRN PRN Reason: Shortness Of Breath Bisacodyl (Bisacodyl 10 Mg Supp.Rect) 10 mg IA Q2-3DAYS PRN PRN Reason: Constipation Cyanocobalamin (Cyanocobalamin (Vitamin B-12) 500 Mcg Tablet) 1,000 mcg PO BID [facility] Stop: 03/23/21 09:01 Last Admin: 03/21/21 08:06 Dose: 1,000 mcg Documented by: Dexamethasone (Dexamethasone 4 Mg Tablet) 6 mg PO DAILY [facility] Last Admin: 03/21/21 08:06 Dose: 6 mg Documented by: Docusate Sodium (Docusate Sodium 100 Mg Capsule) 100 mg PO BID [facility] Last Admin: 03/21/21 07:29 Dose: Not Given Documented by: Enoxaparin Sodium (Enoxaparin 40 Mg/0.4 Ml Syringe) 40 mg SQ BID [facility] Last Admin: 03/21/21 08:07 Dose: 40 mg Documented by: Furosemide (Furosemide 20 Mg/2 Ml Vial) 20 mg IV DAILY [facility] Last Admin: 03/21/21 09:18 Dose: Not Given Documented by: Guaifenesin/Codeine Phosphate (Guaifenesin/Codeine 10 Ml Udc) 10 ml PO Q4HP PRN PRN Reason: Cough Last Admin: 03/21/21 08:07 Dose: 10 ml Documented by: Potassium Chloride 40 meq/ (Dextrose) 520 mls @ 130 mls/hr IV UD PRN PRN Reason: K+ = or < 3.5 Acetaminophen (Ofirmev) 650 mg in 65 mls @ 130 mls/hr IV Q6HP PRN; Protocol PRN Reason: Per Pain Protocol/Fever > 101 Magnesium Sulfate (Magnesium Sulfate) 2 gm in 50 mls @ 50 mls/hr IV UD PRN PRN Reason: MG = or < 1.7 Piperacillin Sod/Tazobactam (Sod 3.375 gm/ Dextrose) 50 mls @ 100 mls/hr IV Q6H [facility]; Protocol Last Infusion: 03/21/21 06:30 Dose: Infused Documented by: REMDESIVIR 100 mg/ Sodium (Chloride) 250 mls @ 500 mls/hr IV DAILY@1100 [facility] Stop: 03/22/21 11:29 Last Infusion: 03/20/21 12:20 Dose: Infused Documented by: Iron Carb/Multivit/Otolaryngology Rep/Folic Acid (Multivit,Ther Iron,Ca,Fa & Min 1 Tablet) 1 tab PO DAILY [facility] Last Admin: 03/21/21 08:06 Dose: 1 tab Documented by: Levothyroxine Sodium (Levothyroxine 125 Mcg Tablet) 125 mcg PO QAMAC [facility] Last Admin: 03/21/21 08:06 Dose: 125 mcg Documented by: Lorazepam (Lorazepam 2 Mg/Ml Vial) 1 - 2 mg IV Q4HP PRN PRN Reason: ANXIETY/SEDATION Last Admin: 03/20/21 21:37 Dose: 2 mg Documented by: Melatonin (Melatonin 3 Mg Tablet) 3 mg PO HSP PRN PRN Reason: Insomnia Last Admin: 03/20/21 20:38 Dose: 3 mg Documented by: Ondansetron HCl (Ondansetron 4 Mg Odt Tablet) 4 mg SL Q4-6HP PRN; Protocol PRN Reason: Nausea And Vomiting Ondansetron HCl (Ondansetron 4 Mg/2 Ml Vial) 4 mg IV Q4-6HP PRN; Protocol PRN Reason: Nausea And Vomiting Polyethylene Glycol (Polyethylene Glycol 3350 17 Gm Packet) 17 gm PO DAILYP PRN PRN Reason: Constipation Potassium Chloride (Potassium Chloride 20 Meq Packet) 40 meq PO DAILYP PRN PRN Reason: K+ < 3.5 Potassium/Phosphorus/Sodium (Neutra Phos 1 Packet) 2 packet PO ONCE PRN PRN Reason: For phosphorus less than 2.5 Senna (Sennosides 1 Tablet) 1 tab PO HS [facility] Last Admin: 03/20/21 20:39 Dose: Not Given Documented by: Sodium Chloride (0.9 % Sodium Chloride 10 Ml Syringe) 10 ml IV Q8 [facility] Last Admin: 03/21/21 05:53 Dose: 10 ml Documented by: A/P Narrative A/P Narrative: * Acute hypoxic respiratory failure secondary to Covid- trial off noninvasive ventilation this morning. Improved prognosis. Continue gentle diuresis. * COVID-19 pneumonia. Bilateral multifocal. Gradual improvement noted on remdesivir/dexamethasone/Tocilizumab unavailable at our facility/DVT prophylaxis * Hyponatremia-gradually improving. * History of hypothyroidism continue thyroxine * Prophylaxis Lovenox Plan * Remdesivir/dexamethasone * Continue gentle diuresis * Lovenox to twice daily * Wean BiPAP * Improved prognosis * DC antibiotics * Pre-existing medical condition management home medication * PT OT nutrition support Critical care time spent in excess of 35 minutes Time Spent With Patient Time: Total time spent is greater than 50% in coordination of care (as documented) at patient's floor/unit and/or counseling patient: QUALITY VTE Deep Vein Thrombosis/Pulmonary Embolism Present on Admission: No
[2021-03-21] MEDS: REMDESIVIR 100 MG in 0.9 % SODIUM CHLORIDE 250 ML IV SCH (11:37)
[2021-03-21] MEDS: MELATONIN 3 MG TABLET PO PRN (21:35)
[2021-03-21] MEDS: LORazepam 2 MG/ML VIAL IV PRN (21:35)
[2021-03-21] MEDS: SENNOSIDES 1 TABLET PO SCH (21:36)
[2021-03-22 06:59] LABS: Basophils # (Auto) 0.01 K/mcL (0.00-0.20); Basophils % (Auto) 0.1 % (0.0-2.0); Eosinophils # (Auto) 0.01 K/mcL (0.00-0.70); Eosinophils % (Auto) 0.1 % (0.0-7.0); Hematocrit 43.3 % (41.0-55.0); Hemoglobin 13.8 g/dL (13.5-16.5); Lymphocytes # (Auto) 0.49 K/mcL (1.50-4.80); Mean Cell Volume 85.9 fL (80.0-100.0); Mean Corpuscular HGB Conc 31.9 g/dL (31.0-36.0); Mean Platelet Volume 10.5 fL (7.4-10.4); Monocytes # (Auto) 0.68 K/mcL (0.10-0.90); Monocytes % (Auto) 9.7 % (1.0-12.0); Neutrophils % (Auto) 83.1 % (38.0-78.0); Platelet Count 403 K/mcL (140-440); RBC 5.04 M/mcL (4.50-5.90); Red Cell Distribution Width 15.1 % (11.5-14.5)
[2021-03-22 07:26] LABS: ALT/SGPT 38 U/L (<40); AST/SGOT 28 U/L (<40); Albumin 2.6 gm/dL (3.2-5.2); Albumin/Globulin Ratio 0.9 (1.0-2.3); Alkaline Phosphatase 126 U/L (39-117); Bilirubin,Direct 0.2 mg/dL (<0.3); Bilirubin,Total 0.5 mg/dL (0.1-1.0); Blood Urea Nitrogen 15 mg/dL (6-20); Calcium 7.7 mg/dL (8.6-10.4); Carbon Dioxide 29 mmol/L (22-30); Chloride 96 mmol/L (96-108); Globulin 2.9 gm/dL (2.2-3.7); Glomerular Filtration Rate 110; Glucose 90 mg/dL (70-105); Lactate Dehydrogenase 360 U/L (135-225); Phosphorous 2.3 mg/dL (2.5-4.5); Triglycerides 102 mg/dL (<150); Uric Acid 2.7 mg/dL (2.5-8.0)
[2021-03-22] MEDS: guaiFENesin/CODEINE 10 ML UDC PO PRN ×2 (07:51→12:29)
[2021-03-22] MEDS: 0.9 % SODIUM CHLORIDE 10 ML SYRINGE IV SCH ×3 (07:51→21:50)
[2021-03-22] MEDS: LEVOTHYROXINE 125 MCG TABLET PO SCH (07:51)
[2021-03-22] MEDS: ENOXAPARIN 40 MG/0.4 ML SYRINGE SQ SCH ×2 (07:51→21:50)
[2021-03-22] MEDS: FUROSEMIDE 20 MG/2 ML VIAL IV SCH (07:51)
[2021-03-22] MEDS: MULTIVIT,THER IRON,CA,FA & MIN 1 TABLET PO SCH (07:52)
[2021-03-22] MEDS: DOCUSATE SODIUM 100 MG CAPSULE PO SCH ×2 (07:52→21:50)
[2021-03-22] MEDS: CYANOCOBALAMIN (VITAMIN B-12) 500 MCG TABLET PO SCH ×2 (07:52→21:49)
[2021-03-22] MEDS: DEXAMETHASONE 4 MG TABLET PO SCH (07:52)
[2021-03-22] MEDS: REMDESIVIR 100 MG in 0.9 % SODIUM CHLORIDE 250 ML IV SCH (11:39)
--- NOTE | 2021-03-22 16:10 | Internal Med Progress Note ---
SUBJECTIVE Subjective Patient information: Note initiated : 03/22/21 at 4:07 pm Service Date, if different from initiated Date: [] Patient: Jovany Motley a 60 y/o M admitted on 03/18/21 for n/v/d. Chief Complaint: Follow-up COVID-19 pneumonia Interval history: Mr. Motley is a 60 year old M With a history of hypothyroidism/was in his baseline state of health until roughly 10 days prior to presentation became increasingly short of breath/weakness/nausea vomiting. He continued to work with the symptoms however presented today for evaluation as he is unable to function or get around with usual activities. Initial work-up was consistent with sats in 70's, bilateral multifocal chest infiltrates on CT chest. COVID-19 swab positive. Patient was started on remdesivir/dexamethasone. Subsequently hospitalist service consulted. At the time of my evaluation patient is alert and oriented. He is on 2 L oxygen. He denies active distress including headache photophobia endorses to rash on the flexor aspect of right forearm Which he frequently experiences but has not been evaluated by outpatient as outpatient. He denies weight loss endorses diarrhea, persistent nausea over the last few days. He endorses to loss of appetite/fatigue/weakness and low-grade fever. 03/19-patient clinically deteriorating since last night. Currently on noninvasive mechanical ventilation on 50% FiO2. ABG 7.4 on 13 L oxygen. Guarded prognosis. Currently on remdesivir/dexamethasone/empiric antibiotic coverage. Discussed treatment plan with patient. No family members present. Remains high risk mortality 03/20-patient doing better currently on 50% FiO2. Interval chest imaging bilateral infiltrates. On remdesivir/dexamethasone. Start gentle diuresis. Stable labs, white count 6.1, elevated fibrinogen/D-dimer, increased Lovenox to twice daily, sodium improved to 132 LFTs stable 03/21-patient doing a lot better. Overnight on BiPAP and now on trial off on 4 to 5 L oxygen. Responding well to diuretics. Tolerating diet. Feels a lot better. Continue remdesivir/dexamethasone. No overnight fever chills. Ambulating. Mentation at baseline. Stable hemodynamics and labs. atient on high flow oxygen by nasal cannula. Tolerating diuresis, running net negative. Continues to feel improved but remains weak and with dyspnea. Phosphorus low today, mild hyponatremia remains. Constitutional Vitals: Vital Signs Temp Pulse Resp BP Pulse Ox 97.4 F 95 H 20 125/78 93 03/22/21 16:00 03/22/21 16:00 03/22/21 16:00 03/22/21 16:00 03/22/21 16:00 Period Temp Pulse Resp BP Sys/Junior Pulse Ox Last 24 Hr 97.4 F-97.8 F 74-95 19-26 110-140/58-85 92-100 Intake and Output 03/22/21 03/22/21 03/22/21 05:59 13:59 21:59 Intake Total 490 240 Output Total 800 925 825 Balance -241 -206 -619 GENERAL: In bed, mildly ill-appearing RESPIRATORY: Scattered crackles bilaterally, no accessory muscle use CARDIOVASCULAR: Regular rate and rhythm ABDOMEN: Soft, nontender EXTREMITIES: No edema NEURO: Alert, oriented x3, able to get up to ambulate briefly in room Intake & Output: Intake & Output 03/22/21 03/22/21 03/22/21 05:59 13:59 21:59 Intake Total 490 240 Output Total 800 925 825 Balance -325 -203 -954 Intake: IV 250 Veklury 100 mg In Sodium 250 Chloride 0.9% 250 ml @ 500 mls/ hr IV DAILY@1100 [facility] Rx#: [id number] Oral 240 240 Output: Void Amount 800 925 825 Other: Meal Breakfast Lunch Percent of Meal Consumed Refused 100% Feeding Ability Independent Urine Appearance Clear Clear Clear Urine Color Bright Yellow Pale Light Hattie Urine Odor Normal Normal Normal OBJ DATA Labs CBC & Chem 7: 03/22/21 05:19 03/22/21 05:19 Labs: Abnormal Lab Results 03/22/21 03/22/21 03/21/21 05:19 05:19 05:00 RDW 15.1 H MPV 10.5 H Neut % (Auto) 83.1 H Lymph % (Auto) 7.0 L Lymph # (Auto) 0.49 L Sodium 132 L Chloride 95 L Anion Gap 7.0 L Creatinine 0.6 L 0.6 L Glucose Uric Acid 2.3 L Calcium 7.7 L 7.9 L Phosphorus 2.3 L GGT 88 H 91 H ALT Alkaline Phosphatase 126 H 131 H Lactate Dehydrogenase 360 H 415 H Total Protein 5.5 L 5.6 L Albumin 2.6 L 2.6 L Albumin/Globulin Ratio 0.9 L 0.9 L 03/21/21 03/20/21 03/20/21 05:00 05:15 05:15 RDW 15.0 H 14.9 H MPV 10.6 H 10.5 H Neut % (Auto) 83.2 H 82.8 H Lymph % (Auto) 6.7 L 6.8 L Lymph # (Auto) 0.44 L 0.41 L Sodium 132 L Chloride Anion Gap Creatinine 0.6 L Glucose 126 H Uric Acid 1.6 L Calcium 7.7 L Phosphorus GGT 93 H ALT 42 H Alkaline Phosphatase 141 H Lactate Dehydrogenase 437 H Total Protein 5.6 L Albumin 2.8 L Albumin/Globulin Ratio Meds: Medications Acetaminophen (Acetaminophen 325 Mg Tablet) 650 mg PO Q4-6HP PRN; Protocol PRN Reason: Per Pain Protocol/Fever > 101 Albuterol Sulfate (Albuterol Sulfate 200 Puff Inhaler) 1 - 2 puff INH Q4HP PRN PRN Reason: Shortness Of Breath Bisacodyl (Bisacodyl 10 Mg Supp.Rect) 10 mg DC Q2-3DAYS PRN PRN Reason: Constipation Cyanocobalamin (Cyanocobalamin (Vitamin B-12) 500 Mcg Tablet) 1,000 mcg PO BID [facility] Stop: 03/23/21 09:01 Last Admin: 03/22/21 07:52 Dose: 1,000 mcg Documented by: Dexamethasone (Dexamethasone 4 Mg Tablet) 6 mg PO DAILY [facility] Last Admin: 03/22/21 07:52 Dose: 6 mg Documented by: Docusate Sodium (Docusate Sodium 100 Mg Capsule) 100 mg PO BID [facility] Last Admin: 03/22/21 07:52 Dose: Not Given Documented by: Enoxaparin Sodium (Enoxaparin 40 Mg/0.4 Ml Syringe) 40 mg SQ BID [facility] Last Admin: 03/22/21 07:51 Dose: 40 mg Documented by: Furosemide (Furosemide 20 Mg/2 Ml Vial) 20 mg IV DAILY [facility] Last Admin: 03/22/21 07:51 Dose: 20 mg Documented by: Guaifenesin/Codeine Phosphate (Guaifenesin/Codeine 10 Ml Udc) 10 ml PO Q4HP PRN PRN Reason: Cough Last Admin: 03/22/21 12:29 Dose: 10 ml Documented by: Potassium Chloride 40 meq/ (Dextrose) 520 mls @ 130 mls/hr IV UD PRN PRN Reason: K+ = or < 3.5 Acetaminophen (Ofirmev) 650 mg in 65 mls @ 130 mls/hr IV Q6HP PRN; Protocol PRN Reason: Per Pain Protocol/Fever > 101 Magnesium Sulfate (Magnesium Sulfate) 2 gm in 50 mls @ 50 mls/hr IV UD PRN PRN Reason: MG = or < 1.7 Iron Carb/Multivit/Fleet Service Clerk/Folic Acid (Multivit,Ther Iron,Ca,Fa & Min 1 Tablet) 1 tab PO DAILY [facility] Last Admin: 03/22/21 07:52 Dose: 1 tab Documented by: Levothyroxine Sodium (Levothyroxine 125 Mcg Tablet) 125 mcg PO QAMAC [facility] Last Admin: 03/22/21 07:51 Dose: 125 mcg Documented by: Lorazepam (Lorazepam 2 Mg/Ml Vial) 1 - 2 mg IV Q4HP PRN PRN Reason: ANXIETY/SEDATION Last Admin: 03/21/21 21:35 Dose: 2 mg Documented by: Melatonin (Melatonin 3 Mg Tablet) 3 mg PO HSP PRN PRN Reason: Insomnia Last Admin: 03/21/21 21:35 Dose: 3 mg Documented by: Ondansetron HCl (Ondansetron 4 Mg Odt Tablet) 4 mg SL Q4-6HP PRN; Protocol PRN Reason: Nausea And Vomiting Ondansetron HCl (Ondansetron 4 Mg/2 Ml Vial) 4 mg IV Q4-6HP PRN; Protocol PRN Reason: Nausea And Vomiting Polyethylene Glycol (Polyethylene Glycol 3350 17 Gm Packet) 17 gm PO DAILYP PRN PRN Reason: Constipation Potassium Chloride (Potassium Chloride 20 Meq Packet) 40 meq PO DAILYP PRN PRN Reason: K+ < 3.5 Potassium/Phosphorus/Sodium (Neutra Phos 1 Packet) 2 packet PO ONCE PRN PRN Reason: For phosphorus less than 2.5 Last Admin: 03/22/21 07:51 Dose: 2 packet Documented by: Senna (Sennosides 1 Tablet) 1 tab PO HS [facility] Last Admin: 03/21/21 21:36 Dose: Not Given Documented by: Sodium Chloride (0.9 % Sodium Chloride 10 Ml Syringe) 10 ml IV Q8 [facility] Last Admin: 03/22/21 12:29 Dose: 10 ml Documented by: A/P Narrative A/P Narrative: Severe COVID-19 with COVID-19 pneumonia Acute hypoxic respiratory failure -Presented with about 10 days of symptoms -Hospitalized 03/18, Covid positive -Receiving remdesivir and dexamethasone, day #5 -Initially treated with nasal cannula, subsequently requiring BiPAP -Now tolerating high flow oxygen by nasal cannula Hyponatremia -Likely secondary to pulmonary infection, stable Hypothyroidism -On levothyroxine Plan -Continue remdesivir and dexamethasone, day #5 -Continue with diuresis as tolerated -Continue with supplemental oxygen by nasal cannula, wean as tolerated -Continue twice daily enoxaparin for DVT prophylaxis -Continue levothyroxine Time Spent With Patient Time: Total time spent is greater than 50% in coordination of care (as documented) at patient's floor/unit and/or counseling patient: Total time spent with greater than 50% in coordination of care (as documented) at patient's floor/unit and/or counseling patient:: Greater than 35 minutes QUALITY VTE Deep Vein Thrombosis/Pulmonary Embolism Present on Admission: No
[2021-03-22] MEDS: MELATONIN 3 MG TABLET PO PRN (21:50)
[2021-03-22] MEDS: SENNOSIDES 1 TABLET PO SCH (21:50)
[2021-03-22] MEDS: LORazepam 2 MG/ML VIAL IV PRN (21:50)
[2021-03-23] MEDS: 0.9 % SODIUM CHLORIDE 10 ML SYRINGE IV SCH ×3 (06:05→21:03)
[2021-03-23 07:14] LABS: Basophils # (Auto) 0.01 K/mcL (0.00-0.20); Basophils % (Auto) 0.1 % (0.0-2.0); Eosinophils # (Auto) 0.02 K/mcL (0.00-0.70); Eosinophils % (Auto) 0.2 % (0.0-7.0); Hematocrit 42.5 % (41.0-55.0); Hemoglobin 13.7 g/dL (13.5-16.5); Lymphocytes # (Auto) 0.52 K/mcL (1.50-4.80); Lymphocytes % (Auto) 5.5 % (15.0-49.0); Mean Cell Volume 86.2 fL (80.0-100.0); Mean Corpuscular HGB Conc 32.2 g/dL (31.0-36.0); Mean Platelet Volume 10.4 fL (7.4-10.4); Monocytes # (Auto) 1.08 K/mcL (0.10-0.90); Monocytes % (Auto) 11.5 % (1.0-12.0); Neutrophils % (Auto) 82.7 % (38.0-78.0); Platelet Count 463 K/mcL (140-440); RBC 4.93 M/mcL (4.50-5.90); WBC 9.4 K/mcL (4.5-11.0)
[2021-03-23 07:29] LABS: ALT/SGPT 40 U/L (<40); AST/SGOT 26 U/L (<40); Albumin 2.5 gm/dL (3.2-5.2); Albumin/Globulin Ratio 0.8 (1.0-2.3); Alkaline Phosphatase 131 U/L (39-117); Bilirubin,Direct 0.2 mg/dL (<0.3); Bilirubin,Total 0.6 mg/dL (0.1-1.0); Blood Urea Nitrogen 13 mg/dL (6-20); Calcium 7.9 mg/dL (8.6-10.4); Carbon Dioxide 24 mmol/L (22-30); Chloride 98 mmol/L (96-108); Globulin 3.2 gm/dL (2.2-3.7); Glomerular Filtration Rate 118; Glucose 98 mg/dL (70-105); Lactate Dehydrogenase 307 U/L (135-225); Phosphorous 2.4 mg/dL (2.5-4.5); Triglycerides 77 mg/dL (<150); Uric Acid 2.6 mg/dL (2.5-8.0)
[2021-03-23] MEDS: LEVOTHYROXINE 125 MCG TABLET PO SCH (09:18)
[2021-03-23] MEDS: DEXAMETHASONE 4 MG TABLET PO SCH (09:18)
[2021-03-23] MEDS: CYANOCOBALAMIN (VITAMIN B-12) 500 MCG TABLET PO SCH (09:18)
[2021-03-23] MEDS: DOCUSATE SODIUM 100 MG CAPSULE PO SCH ×3 (09:18→20:40)
[2021-03-23] MEDS: guaiFENesin/CODEINE 10 ML UDC PO PRN (09:19)
[2021-03-23] MEDS: FUROSEMIDE 20 MG/2 ML VIAL IV SCH (09:19)
[2021-03-23] MEDS: ENOXAPARIN 40 MG/0.4 ML SYRINGE SQ SCH ×2 (09:19→21:02)
[2021-03-23] MEDS: MULTIVIT,THER IRON,CA,FA & MIN 1 TABLET PO SCH (09:19)
[2021-03-23] MEDS: LORazepam 2 MG/ML VIAL IV PRN ×2 (10:15→21:02)
[2021-03-23] MEDS ORDERED: NEUTRA PHOS 1 PACKET PO SCH (14:45)
[2021-03-23] MEDS ORDERED: NEUTRA PHOS 1 PACKET PO PRN (16:13)
--- NOTE | 2021-03-23 18:21 | XRay Report ---
CLINICAL INFORMATION: Follow up on pneumonia COMPARISON: 03/20/2021 FINDINGS: Heart size, mediastinum and pulmonary vessels are normal. Vague patchy groundglass infiltrate in the peripheral right mid and upper lung is unchanged. No effusions. IMPRESSION: No change in vague groundglass infiltrate right middle and upper lung Interpreted and Authenticated by: Jovany Anderson 03/23/21
--- NOTE | 2021-03-23 18:22 | Internal Med Progress Note ---
SUBJECTIVE Subjective Patient information: Note initiated : 03/23/21 at 6:21 pm Service Date, if different from initiated Date: [] Patient: Jovany Motley a 60 y/o M admitted on 03/18/21 for n/v/d. Chief Complaint: Follow-up Covid pneumonia and respiratory failure Interval history: Mr. Motley is a 60 year old M With a history of hypothyroidism/was in his baseline state of health until roughly 10 days prior to presentation became increasingly short of breath/weakness/nausea vomiting. He continued to work with the symptoms however presented today for evaluation as he is unable to function or get around with usual activities. Initial work-up was consistent with sats in 70's, bilateral multifocal chest infiltrates on CT chest. COVID-19 swab positive. Patient was started on remdesivir/dexamethasone. Subsequently hospitalist service consulted. At the time of my evaluation patient is alert and oriented. He is on 2 L oxygen. He denies active distress including headache photophobia endorses to rash on the flexor aspect of right forearm Which he frequently experiences but has not been evaluated by outpatient as outpatient. He denies weight loss endorses diarrhea, persistent nausea over the last few days. He endorses to loss of appetite/fatigue/weakness and low-grade fever. 03/19-patient clinically deteriorating since last night. Currently on noninvasive mechanical ventilation on 50% FiO2. ABG 7.4 on 13 L oxygen. Guarded prognosis. Currently on remdesivir/dexamethasone/empiric antibiotic coverage. Discussed treatment plan with patient. No family members present. Remains high risk mortality 03/20-patient doing better currently on 50% FiO2. Interval chest imaging bilateral infiltrates. On remdesivir/dexamethasone. Start gentle diuresis. Stable labs, white count 6.1, elevated fibrinogen/D-dimer, increased Lovenox to twice daily, sodium improved to 132 LFTs stable 03/21-patient doing a lot better. Overnight on BiPAP and now on trial off on 4 to 5 L oxygen. Responding well to diuretics. Tolerating diet. Feels a lot better. Continue remdesivir/dexamethasone. No overnight fever chills. Ambulating. Mentation at baseline. Stable hemodynamics and labs. atient on high flow oxygen by nasal cannula. Tolerating diuresis, running net negative. Continues to feel improved but remains weak and with dyspnea. Phosphorus low today, mild hyponatremia remains. 8/1patient required up to 8 LPM with nasal cannula at high flow overnight. Again improving today, wean down to 2 LPM. Query whether part of his respiratory needs were due to lorazepam for anxiety. Patient very much would like to go home soon. Serum sodium is normalized today, continue to replete mild hypophosphatemia. Constitutional Vitals: Vital Signs Temp Pulse Resp BP Pulse Ox 97.8 F 85 20 126/74 97 03/23/21 16:00 03/23/21 16:00 03/23/21 16:00 03/23/21 16:00 03/23/21 16:30 Period Temp Pulse Resp BP Sys/Junior Pulse Ox Last 24 Hr 97.8 F-98.6 F 81-97 14-24 108-136/65-83 90-98 Intake and Output 03/23/21 03/23/21 03/23/21 05:59 13:59 21:59 Intake Total 480 Output Total 950 Balance -950 480 GENERAL: Sleepy, no acute distress RESPIRATORY: Coarse bilaterally, unlabored CARDIOVASCULAR: Regular ABDOMEN: Nondistended, nontender EXTREMITIES: No edema NEURO: Sleepy but alert, ambulatory in room Intake & Output: Intake & Output 03/23/21 03/23/21 03/23/21 05:59 13:59 21:59 Intake Total 480 Output Total 950 Balance -950 480 Intake: Oral 480 Output: Void Amount 950 Other: Meal Breakfast Percent of Meal Consumed Refused Feeding Ability Independent Urine Appearance Clear Urine Color Bright Yellow Urine Odor Normal OBJ DATA Labs CBC & Chem 7: 03/23/21 05:25 03/23/21 05:25 Labs: Abnormal Lab Results 03/23/21 03/23/21 03/22/21 05:25 05:25 05:19 RDW 15.0 H Plt Count 463 H MPV Neut % (Auto) 82.7 H Lymph % (Auto) 5.5 L Lymph # (Auto) 0.52 L Clinch # (Auto) 1.08 H Sodium 132 L Chloride Anion Gap 7.0 L Creatinine 0.5 L 0.6 L Uric Acid Calcium 7.9 L 7.7 L Phosphorus 2.4 L 2.3 L GGT 87 H 88 H ALT 40 H Alkaline Phosphatase 131 H 126 H Lactate Dehydrogenase 307 H 360 H Total Protein 5.7 L 5.5 L Albumin 2.5 L 2.6 L Albumin/Globulin Ratio 0.8 L 0.9 L 03/22/21 03/21/21 03/21/21 05:19 05:00 05:00 RDW 15.1 H 15.0 H Plt Count MPV 10.5 H 10.6 H Neut % (Auto) 83.1 H 83.2 H Lymph % (Auto) 7.0 L 6.7 L Lymph # (Auto) 0.49 L 0.44 L Clinch # (Auto) Sodium Chloride 95 L Anion Gap Creatinine 0.6 L Uric Acid 2.3 L Calcium 7.9 L Phosphorus GGT 91 H ALT Alkaline Phosphatase 131 H Lactate Dehydrogenase 415 H Total Protein 5.6 L Albumin 2.6 L Albumin/Globulin Ratio 0.9 L Meds: Medications Acetaminophen (Acetaminophen 325 Mg Tablet) 650 mg PO Q4-6HP PRN; Protocol PRN Reason: Per Pain Protocol/Fever > 101 Albuterol Sulfate (Albuterol Sulfate 200 Puff Inhaler) 1 - 2 puff INH Q4HP PRN PRN Reason: Shortness Of Breath Bisacodyl (Bisacodyl 10 Mg Supp.Rect) [address] Q2-3DAYS PRN PRN Reason: Constipation Dexamethasone (Dexamethasone 4 Mg Tablet) 6 mg PO DAILY [facility] Last Admin: 03/23/21 09:18 Dose: 6 mg Documented by: Docusate Sodium (Docusate Sodium 100 Mg Capsule) 100 mg PO BID [facility] Last Admin: 03/23/21 10:05 Dose: Not Given Documented by: Enoxaparin Sodium (Enoxaparin 40 Mg/0.4 Ml Syringe) 40 mg SQ BID [facility] Last Admin: 03/23/21 09:19 Dose: 40 mg Documented by: Furosemide (Furosemide 20 Mg/2 Ml Vial) 20 mg IV DAILY [facility] Last Admin: 03/23/21 09:19 Dose: 20 mg Documented by: Guaifenesin/Codeine Phosphate (Guaifenesin/Codeine 10 Ml Udc) 10 ml PO Q4HP PRN PRN Reason: Cough Last Admin: 03/23/21 09:19 Dose: 10 ml Documented by: Potassium Chloride 40 meq/ (Dextrose) 520 mls @ 130 mls/hr IV UD PRN PRN Reason: K+ = or < 3.5 Acetaminophen (Ofirmev) 650 mg in 65 mls @ 130 mls/hr IV Q6HP PRN; Protocol PRN Reason: Per Pain Protocol/Fever > 101 Magnesium Sulfate (Magnesium Sulfate) 2 gm in 50 mls @ 50 mls/hr IV UD PRN PRN Reason: MG = or < 1.7 Iron Carb/Multivit/[place]/Folic Acid (Multivit,Ther Iron,Ca,Fa & Min 1 Tablet) 1 tab PO DAILY [facility] Last Admin: 03/23/21 09:19 Dose: 1 tab Documented by: Levothyroxine Sodium (Levothyroxine 125 Mcg Tablet) 125 mcg PO QAMAC [facility] Last Admin: 03/23/21 09:18 Dose: 125 mcg Documented by: Lorazepam (Lorazepam 2 Mg/Ml Vial) 0.5 - 1 mg IV Q4HP PRN PRN Reason: ANXIETY/SEDATION Melatonin (Melatonin 3 Mg Tablet) 3 mg PO HSP PRN PRN Reason: Insomnia Last Admin: 03/22/21 21:50 Dose: 3 mg Documented by: Ondansetron HCl (Ondansetron 4 Mg Odt Tablet) 4 mg SL Q4-6HP PRN; Protocol PRN Reason: Nausea And Vomiting Ondansetron HCl (Ondansetron 4 Mg/2 Ml Vial) 4 mg IV Q4-6HP PRN; Protocol PRN Reason: Nausea And Vomiting Polyethylene Glycol (Polyethylene Glycol 3350 17 Gm Packet) 17 gm PO DAILYP PRN PRN Reason: Constipation Potassium Chloride (Potassium Chloride 20 Meq Packet) 40 meq PO DAILYP PRN PRN Reason: K+ < 3.5 Potassium/Phosphorus/Sodium (Neutra Phos 1 Packet) 2 packet PO DAILY PRN PRN Reason: Phosphorus less than 2.5 Senna (Sennosides 1 Tablet) 1 tab PO HS [facility] Last Admin: 03/22/21 21:50 Dose: Not Given Documented by: Sodium Chloride (0.9 % Sodium Chloride 10 Ml Syringe) 10 ml IV Q8 [facility] Last Admin: 03/23/21 13:56 Dose: 10 ml Documented by: Imaging and cardiology Chest x-ray: Status: image reviewed by me Additional comments: Date of Service: 03/23/21 Procedure(s): XR chest 1V portable IMPRESSION: No change in vague groundglass infiltrate right middle and upper lung A/P Narrative A/P Narrative: Severe COVID-19 with COVID-19 pneumonia Acute hypoxic respiratory failure -Presented with about 10 days of symptoms -Hospitalized 03/18, SARS-CoV-2 positive -Received remdesivir, completed 5 doses -Receiving dexamethasone, day #6 -Initially treated with nasal cannula, subsequently requiring BiPAP -Now tolerating high flow oxygen by nasal cannula 03/22 -Down to 2 LPM 03/23 after increasing oxygen demands overnight Hyponatremia -Likely secondary to pulmonary infection, stable Hypothyroidism -On levothyroxine Plan -Continue dexamethasone, day #6 -Continue with diuresis as tolerated -Continue with supplemental oxygen by nasal cannula, wean as tolerated -Continue twice daily enoxaparin for DVT prophylaxis -Continue levothyroxine Likely can be changed to medical status if remains stable overnight without suspicion he may need recurrent BiPAP Time Spent With Patient Time: Total time spent is greater than 50% in coordination of care (as documented) at patient's floor/unit and/or counseling patient: Total time spent with greater than 50% in coordination of care (as documented) at patient's floor/unit and/or counseling patient:: Greater than 35 minutes QUALITY VTE Deep Vein Thrombosis/Pulmonary Embolism Present on Admission: No
[2021-03-23] MEDS: SENNOSIDES 1 TABLET PO SCH (20:40)
[2021-03-23] MEDS: MELATONIN 3 MG TABLET PO PRN (21:03)
[2021-03-24] MEDS: LEVOTHYROXINE 125 MCG TABLET PO SCH (07:35)
[2021-03-24] MEDS: 0.9 % SODIUM CHLORIDE 10 ML SYRINGE IV SCH ×3 (07:35→22:57)
[2021-03-24] MEDS: DOCUSATE SODIUM 100 MG CAPSULE PO SCH ×2 (09:27→22:56)
[2021-03-24] MEDS: MULTIVIT,THER IRON,CA,FA & MIN 1 TABLET PO SCH (10:10)
[2021-03-24] MEDS: DEXAMETHASONE 4 MG TABLET PO SCH (10:11)
[2021-03-24] MEDS: ENOXAPARIN 40 MG/0.4 ML SYRINGE SQ SCH ×2 (10:11→20:52)
[2021-03-24] MEDS: FUROSEMIDE 20 MG/2 ML VIAL IV SCH (10:11)
--- NOTE | 2021-03-24 11:47 | Discharge Summary ---
Discharge Provider Provider Patient information: Note initiated : 03/24/21 at 11:46 am Service Date, if different from initiated Date: [] Patient: Jovany Motely 60 y/o M admitted on 03/18/21 for n/v/d. Chief Complaint: [] Date of admission: 03/18/21 16:30 Discharge date: 03/24/21 Primary care physician: Driss Cotter PA-C Attending physician on admission: Magdy gA Consults: 03/18/21 Consult to Physician [CONS] Stat Comment: Consulting Provider: Magdy Ag Reason For Exam: Physician to Consult Attending physician on discharge: Christa Poon Discharge Meds Discharge Medications Home Medications levothyroxine 125 mcg capsule 125 mcg PO QDAY 03/13/21 [History Confirmed 03/18/21 Last Taken Unknown] COURSE Hospital Course Hospital course: Mr. Motley is a 60 year old M With a history of hypothyroidism/was in his baseline state of health until roughly 10 days prior to presentation became increasingly short of breath/weakness/nausea vomiting. He continued to work with the symptoms however presented today for evaluation as he is unable to function or get around with usual activities. Initial work-up was consistent with sats in 70's, bilateral multifocal chest infiltrates on CT chest. COVID-19 swab positive. Patient was started on remdesivir/dexamethasone. Subsequently hospitalist service consulted. At the time of my evaluation patient is alert and oriented. He is on 2 L oxygen. He denies active distress including headache photophobia endorses to rash on the flexor aspect of right forearm Which he frequently experiences but has not been evaluated by outpatient as outpatient. He denies weight loss endorses diarrhea, persistent nausea over the last few d ays. He endorses to loss of appetite/fatigue/weakness and low-grade fever. 03/19-patient clinically deteriorating since last night. Currently on noninvasive mechanical ventilation on 50% FiO2. ABG 7.4 on 13 L oxygen. Guarded prognosis. Currently on remdesivir/dexamethasone/empiric antibiotic coverage. Discussed treatment plan with patient. No family members present. Remains high risk mortality 03/20-patient doing better currently on 50% FiO2. Interval chest imaging bilateral infiltrates. On remdesivir/dexamethasone. Start gentle diuresis. Stable labs, white count 6.1, elevated fibrinogen/D-dimer, increased Lovenox to twice daily, sodium improved to 132 LFTs stable 03/21-patient doing a lot better. Overnight on BiPAP and now on trial off on 4 to 5 L oxygen. Responding well to diuretics. Tolerating diet. Feels a lot better. Continue remdesivir/dexamethasone. No overnight fever chills. Ambulating. Mentation at baseline. Stable hemodynamics and labs. 7/31patient on high flow oxygen by nasal cannula. Tolerating diuresis, running net negative. Continues to feel improved but remains weak and with dyspnea. Phosphorus low today, mild hyponatremia remains. 8/1patient required up to 8 LPM with nasal cannula at high flow overnight. Again improving today, wean down to 2 LPM. Query whether part of his respiratory needs were due to lorazepam for anxiety. Patient very much would like to go home soon. Serum sodium is normalized today, continue to replete mild hypophosphatemia. 8/2patient down to minimal oxygen requirements, saturating okay on room air at rest, requiring 1-2 L with exertion. Feels well. Eating well. Sodium remains normal. Plan to discharge home, continue repleting phosphorus with oral supplements over the next few days. Home oxygen arranged for discharge. Discharge diagnosis: Pneumonia due to COVID-19 Secondary discharge diagnosis: Acute respiratory failure with hypoxia Hyponatremia Procedures: BiPAP therapy Complications: None Time Spent with Patient Time attestation: Total time spent providing and/or coordinating discharge services: Time spent: Greater than 30 minutes EXAM Constitutional Vitals: Temp Pulse Resp BP Pulse Ox 98.2 F 78 16 106/62 90 03/24/21 04:00 03/24/21 10:00 03/24/21 10:00 03/24/21 10:00 03/24/21 10:00 GENERAL: In bed no acute distress RESPIRATORY: Unlabored respirations, lungs clear CARDIOVASCULAR: Regular rate and rhythm ABDOMEN: Nontender EXTREMITIES: No edema NEURO: Alert, oriented x3, moves all extremities, ambulatory in room Discharge Data Data Completed and Pending Labs on day of discharge: Laboratory Results - last 24 hr 03/24/21 03/24/21 09:57 09:57 WBC 8.6 RBC 5.41 Hgb 15.0 Hct 45.6 MCV 84.3 MCH 27.7 MCHC 32.9 RDW 15.2 H Plt Count 536 H MPV 10.1 Neut % (Auto) 82.3 H Lymph % (Auto) 6.2 L Tift % (Auto) 10.5 Eos % (Auto) 0.9 Baso % (Auto) 0.1 Lymph # (Auto) 0.53 L Tift # (Auto) 0.90 Eos # (Auto) 0.08 Baso # (Auto) 0.01 Absolute Neutrophils 7.09 Sodium 130 L Potassium 4.0 Chloride 97 Carbon Dioxide 23 Anion Gap 10.0 BUN 15 Creatinine 0.7 GFR Calculation 103 Glucose 106 H Uric Acid 3.5 Calcium 8.5 L Phosphorus 2.9 Magnesium 2.3 Total Bilirubin 0.6 Direct Bilirubin 0.3 H GGT 83 H AST 20 ALT 36 Alkaline Phosphatase 129 H Lactate Dehydrogenase 303 H Total Protein 6.1 Albumin 2.9 L Globulin 3.2 Albumin/Globulin Ratio 0.9 L Triglycerides 127 Microbiology 03/18/21 17:48 Blood Blood Culture - Final 03/18/21 17:45 Blood Blood Culture - Final Imaging and Cardiology CT scan - chest: Additional comments: Date of Service: 03/18/21 Procedure(s): CT angio chest CLINICAL INFORMATION: Hypoxia. Covid positive. IMPRESSION: 1. Large patchy groundglass infiltrates scattered throughout the periphery of both upper, right middle and lower lobes. Findings compatible with Covid pneumonia. It may also represent other infections or aspiration pneumonia. 2. No evidence of pulmonary embolus. Chest x-ray: Additional comments: Date of Service: 03/18/21 Procedure(s): XR chest 1V portable CLINICAL INFORMATION: hypoxia IMPRESSION: Negative Date of Service: 03/20/21 Procedure(s): XR chest 1V portable CLINICAL INFORMATION: Dyspnea COMPARISON: 03/18/[address] 03/18/2021 IMPRESSION: The known large groundglass infiltrate, throughout the periphery of both lungs, seen on CT are very poorly visualized on plain film due to lack of radiographic density. No change from prior plain film. Date of Service: 03/23/21 Procedure(s): XR chest 1V portable CLINICAL INFORMATION: Follow up on pneumonia COMPARISON: 03/20/2021 IMPRESSION: No change in vague groundglass infiltrate right middle and upper lung Discharge Plan Patient/Caregiver Discharge Instructions Activity: increase activity as tolerated Diet: Regular Diet Instructions: Using Oxygen at Home (GEN), Community Acquired Pneumonia (GEN), Hypoxia (GEN), COVID-19 (Coronavirus Disease 2019)(GEN) Activity Restrictions/Additional Instructions: [facility] Continue with a regular diet, increase activity as tolerated This discharge packet is provided to you to help keep you informed about your care. We want to ensure you get everything you need when you go home. You will also be receiving a call from us in a few days to follow up with you and see how you are doing since your discharge. This gives us a chance to listen to any concerns you maybe experiencing since you were discharged or any additional needs you may have, as well as providing us feedback on your care experience. We strive to always provide excellent care and thank you for your feedback and for choosing [facility]. Prescriptions: No Action levothyroxine 125 mcg capsule 125 mcg PO QDAY RF: 0 Follow Up Plan Follow up with: Driss Cotter PA-C [Primary Care Provider] - 04/02/21 12:45 pm (If you still have Covid symptoms at the time of this appointment, please call to reschedule.) Patient Disposition: Home, Self-Care Prognosis: Good I certify that the patient requires SNF services: No Overall status at discharge: patient is progressing back to baseline Discharge Orders: Discharge Order (Routine); Ordered 03/24/21 Ordered By: Christa INTERIANO VTE Deep Vein Thrombosis/Pulmonary Embolism Present on Admission: No
[2021-03-24 12:39] LABS: Basophils # (Auto) 0.01 K/mcL (0.00-0.20); Basophils % (Auto) 0.1 % (0.0-2.0); Eosinophils # (Auto) 0.08 K/mcL (0.00-0.70); Eosinophils % (Auto) 0.9 % (0.0-7.0); Hematocrit 45.6 % (41.0-55.0); Lymphocytes # (Auto) 0.53 K/mcL (1.50-4.80); Lymphocytes % (Auto) 6.2 % (15.0-49.0); Mean Cell Volume 84.3 fL (80.0-100.0); Mean Corpuscular HGB Conc 32.9 g/dL (31.0-36.0); Mean Platelet Volume 10.1 fL (7.4-10.4); Monocytes % (Auto) 10.5 % (1.0-12.0); Neutrophils % (Auto) 82.3 % (38.0-78.0); Platelet Count 536 K/mcL (140-440); RBC 5.41 M/mcL (4.50-5.90); Red Cell Distribution Width 15.2 % (11.5-14.5); WBC 8.6 K/mcL (4.5-11.0)
[2021-03-24 12:52] LABS: ALT/SGPT 36 U/L (<40); AST/SGOT 20 U/L (<40); Albumin 2.9 gm/dL (3.2-5.2); Albumin/Globulin Ratio 0.9 (1.0-2.3); Alkaline Phosphatase 129 U/L (39-117); Bilirubin,Direct 0.3 mg/dL (<0.3); Bilirubin,Total 0.6 mg/dL (0.1-1.0); Blood Urea Nitrogen 15 mg/dL (6-20); Calcium 8.5 mg/dL (8.6-10.4); Carbon Dioxide 23 mmol/L (22-30); Chloride 97 mmol/L (96-108); Globulin 3.2 gm/dL (2.2-3.7); Glomerular Filtration Rate 103; Glucose 106 mg/dL (70-105); Lactate Dehydrogenase 303 U/L (135-225); Phosphorous 2.9 mg/dL (2.5-4.5); Triglycerides 127 mg/dL (<150); Uric Acid 3.5 mg/dL (2.5-8.0)
[2021-03-24] MEDS: LORazepam 2 MG/ML VIAL IV PRN (18:51)
[2021-03-24] MEDS: SENNOSIDES 1 TABLET PO SCH (20:52)
[2021-03-24] MEDS: MELATONIN 3 MG TABLET PO PRN (20:52)
--- NOTE | 2021-03-24 20:57 | Internal Med Progress Note ---
SUBJECTIVE Subjective Patient information: Note initiated : 03/24/21 at 8:54 pm Service Date, if different from initiated Date: [] Patient: Jovany Motley a 60 y/o M admitted on 03/18/21 for n/v/d. Chief Complaint: f/u COVID pneumonia Interval history: Mr. Motley is a 60 year old M With a history of hypothyroidism/was in his baseline state of health until roughly 10 days prior to presentation became increasingly short of breath/weakness/nausea vomiting. He continued to work with the symptoms however presented today for evaluation as he is unable to function or get around with usual activities. Initial work-up was consistent with sats in 70's, bilateral multifocal chest infiltrates on CT chest. COVID-19 swab positive. Patient was started on remdesivir/dexamethasone. Subsequently hospitalist service consulted. At the time of my evaluation patient is alert and oriented. He is on 2 L oxygen. He denies active distress including headache photophobia endorses to rash on the flexor aspect of right forearm Which he frequently experiences but has not been evaluated by outpatient as outpatient. He denies weight loss endorses diarrhea, persistent nausea over the last few days. He endorses to loss of appetite/fatigue/weakness and low-grade fever. 03/19-patient clinically deteriorating since last night. Currently on noninvasive mechanical ventilation on 50% FiO2. ABG 7.4 on 13 L oxygen. Guarded prognosis. Currently on remdesivir/dexamethasone/empiric antibiotic coverage. Discussed treatment plan with patient. No family members present. Remains high risk mortality 03/20-patient doing better currently on 50% FiO2. Interval chest imaging bilateral infiltrates. On remdesivir/dexamethasone. Start gentle diuresis. S table labs, white count 6.1, elevated fibrinogen/D-dimer, increased Lovenox to twice daily, sodium improved to 132 LFTs stable 03/21-patient doing a lot better. Overnight on BiPAP and now on trial off on 4 to 5 L oxygen. Responding well to diuretics. Tolerating diet. Feels a lot better. Continue remdesivir/dexamethasone. No overnight fever chills. Ambulating. Mentation at baseline. Stable hemodynamics and labs. atient on high flow oxygen by nasal cannula. Tolerating diuresis, running net negative. Continues to feel improved but remains weak and with dyspnea. Phosphorus low today, mild hyponatremia remains. 8/1patient required up to 8 LPM with nasal cannula at high flow overnight. Again improving today, wean down to 2 LPM. Query whether part of his respiratory needs were due to lorazepam for anxiety. Patient very much would like to go home soon. Serum sodium is normalized today, continue to replete mild hypophosphatemia. 8/2patient down to minimal oxygen requirements, saturating okay on room air at rest, requiring 1-2 L with exertion. Feels well. Eating well. Sodium remains normal. Plan to discharge home, continue repleting phosphorus with oral supplem ents over the next few days. Home oxygen arranged for discharge. A few hours later, prior to leaving, the patient was quite confused. He is unable to put on his own shirt and get dressed. He did realize that he was confused. ABG showed hypoxia, no hypercarbia. He did desat to 70% with exertion. Discharge was held, patient continues to be monitored and treated with supplemental oxygen. Laboratory evaluation this morning is generally unrevealing. Constitutional Vitals: Vital Signs Temp Pulse Resp BP Pulse Ox 97.8 F 86 19 108/93 94 03/24/21 20:01 03/24/21 20:01 03/24/21 20:01 03/24/21 20:01 03/24/21 20:01 Period Temp Pulse Resp BP Sys/Junior Pulse Ox Last 24 Hr 97.8 F-98.2 F 27-101 16-23 78-133/59-93 90-97 Intake and Output 03/24/21 03/24/21 03/24/21 05:59 13:59 21:59 Output Total 650 150 125 Balance -650 -150 -125 Weight 158 lb 1.6 oz Patient Weight 03/25/21 05:59 Weight 158 lb 1.6 oz GENERAL: In bed no acute distress when I see the patient earlier in the day, subsequently appears confused RESPIRATORY: Unlabored respirations, lungs clear on my exam CARDIOVASCULAR: Regular rate and rhythm ABDOMEN: Nontender EXTREMITIES: No edema NEURO: Alert, oriented earlier in the day, able to stand at bedside. Subsequently confused, not able to put on his shirt. Moves all limbs equally. Intake & Output: Intake & Output 08/02/21 08/02/21 08/02/21 05:59 13:59 21:59 Output Total 650 150 125 Balance -650 -150 -125 Weight 158 lb 1.6 oz Output: Void Amount 650 150 125 Other: Urine Appearance Clear Urine Color Light Hattie # Voids 1 OBJ DATA Labs CBC & Chem 7: 03/24/21 09:57 03/24/21 09:57 Labs: Abnormal Lab Results 03/24/21 03/24/21 03/23/21 09:57 09:57 05:25 RDW 15.2 H Plt Count 536 H MPV Neut % (Auto) 82.3 H Lymph % (Auto) 6.2 L Lymph # (Auto) 0.53 L [place] # (Auto) Sodium 130 L Anion Gap Creatinine 0.5 L Glucose 106 H Calcium 8.5 L 7.9 L Phosphorus 2.4 L Direct Bilirubin 0.3 H GGT 83 H 87 H ALT 40 H Alkaline Phosphatase 129 H 131 H Lactate Dehydrogenase 303 H 307 H Total Protein 5.7 L Albumin 2.9 L 2.5 L Albumin/Globulin Ratio 0.9 L 0.8 L 03/23/21 03/22/21 03/22/21 05:25 05:19 05:19 RDW 15.0 H 15.1 H Plt Count 463 H MPV 10.5 H Neut % (Auto) 82.7 H 83.1 H Lymph % (Auto) 5.5 L 7.0 L Lymph # (Auto) 0.52 L 0.49 L [place] # (Auto) 1.08 H Sodium 132 L Anion Gap 7.0 L Creatinine 0.6 L Glucose Calcium 7.7 L Phosphorus 2.3 L Direct Bilirubin GGT 88 H ALT Alkaline Phosphatase 126 H Lactate Dehydrogenase 360 H Total Protein 5.5 L Albumin 2.6 L Albumin/Globulin Ratio 0.9 L ABG during confusion: pH 7.50, PCO2 30, PO2 64 Meds: Medications Acetaminophen (Acetaminophen 325 Mg Tablet) 650 mg PO Q4-6HP PRN; Protocol PRN Reason: Per Pain Protocol/Fever > 101 Albuterol Sulfate (Albuterol Sulfate 200 Puff Inhaler) 1 - 2 puff INH Q4HP PRN PRN Reason: Shortness Of Breath Bisacodyl (Bisacodyl 10 Mg Supp.Rect) 10 mg MT Q2-3DAYS PRN PRN Reason: Constipation Dexamethasone (Dexamethasone 4 Mg Tablet) 6 mg PO DAILY JOM[facility] Last Admin: 03/24/21 10:11 Dose: 6 mg Documented by: Docusate Sodium (Docusate Sodium 100 Mg Capsule) 100 mg PO BID [facility] Last Admin: 03/24/21 09:27 Dose: Not Given Documented by: Enoxaparin Sodium (Enoxaparin 40 Mg/0.4 Ml Syringe) 40 mg SQ BID [facility] Last Admin: 03/24/21 20:52 Dose: 40 mg Documented by: Furosemide (Furosemide 20 Mg/2 Ml Vial) 20 mg IV DAILY [facility] Last Admin: 03/24/21 10:11 Dose: 20 mg Documented by: Guaifenesin/Codeine Phosphate (Guaifenesin/Codeine 10 Ml Udc) 10 ml PO Q4HP PRN PRN Reason: Cough Last Admin: 03/23/21 09:19 Dose: 10 ml Documented by: Potassium Chloride 40 meq/ (Dextrose) 520 mls @ 130 mls/hr IV UD PRN PRN Reason: K+ = or < 3.5 Acetaminophen (Ofirmev) 650 mg in 65 mls @ 130 mls/hr IV Q6HP PRN; Protocol PRN Reason: Per Pain Protocol/Fever > 101 Magnesium Sulfate (Magnesium Sulfate) 2 gm in 50 mls @ 50 mls/hr IV UD PRN PRN Reason: MG = or < 1.7 Iron Carb/Multivit/[place]/Folic Acid (Multivit,Ther Iron,Ca,Fa & Min 1 Tablet) 1 tab PO DAILY [facility] Last Admin: 03/24/21 10:10 Dose: 1 tab Documented by: Levothyroxine Sodium (Levothyroxine 125 Mcg Tablet) 125 mcg PO QAMAC [facility] Last Admin: 03/24/21 07:35 Dose: 125 mcg Documented by: Lorazepam (Lorazepam 2 Mg/Ml Vial) 0.5 - 1 mg IV Q4HP PRN PRN Reason: ANXIETY/SEDATION Last Admin: 03/24/21 18:51 Dose: 1 mg Documented by: Melatonin (Melatonin 3 Mg Tablet) 3 mg PO HSP PRN PRN Reason: Insomnia Last Admin: 03/24/21 20:52 Dose: 3 mg Documented by: Ondansetron HCl (Ondansetron 4 Mg Odt Tablet) 4 mg SL Q4-6HP PRN; Protocol PRN Reason: Nausea And Vomiting Last Admin: 03/24/21 18:25 Dose: 4 mg Documented by: Ondansetron HCl (Ondansetron 4 Mg/2 Ml Vial) 4 mg IV Q4-6HP PRN; Protocol PRN Reason: Nausea And Vomiting Polyethylene Glycol (Polyethylene Glycol 3350 17 Gm Packet) 17 gm PO DAILYP PRN PRN Reason: Constipation Potassium Chloride (Potassium Chloride 20 Meq Packet) 40 meq PO DAILYP PRN PRN Reason: K+ < 3.5 Potassium/Phosphorus/Sodium (Neutra Phos 1 Packet) 2 packet PO DAILY PRN PRN Reason: Phosphorus less than 2.5 Last Admin: 03/23/21 21:02 Dose: 2 packet Documented by: Senna (Sennosides 1 Tablet) 1 tab PO HS [facility] Last Admin: 03/24/21 20:52 Dose: 1 tab Documented by: Sodium Chloride (0.9 % Sodium Chloride 10 Ml Syringe) 10 ml IV Q8 [facility] Last Admin: 03/24/21 14:43 Dose: Not Given Documented by: A/P Narrative A/P Narrative: Severe COVID-19 with COVID-19 pneumonia Acute hypoxic respiratory failure -Presented with about 10 days of symptoms -Hospitalized 03/18, SARS-CoV-2 positive -Received remdesivir, completed 5 doses -Receiving dexamethasone, day #6 -Initially treated with nasal cannula, subsequently requiring BiPAP -Now tolerating high flow oxygen by nasal cannula 03/22 -Down to 2 LPM 03/23 after increasing oxygen demands overnight -Was saturating in low 90s on room air, only requiring 12 LPM with exertion initially on 03/24 -Subsequently confused 03/24, no hypercarbia Acute confusion -May be related to hypoxia -No hypercarbia on ABG -A.m. labs generally unrevealing Hyponatremia -Likely secondary to pulmonary infection, stable Hypothyroidism -On levothyroxine Plan -Hold on discharge -Continue to monitor and provide supplemental oxygen -If not clearing, consider CT head -Dexamethasone, day #7, will discontinue to see if it may be contributing to mental status -Continue with diuresis as tolerated -Continue with supplemental oxygen by nasal cannula, wean as tolerated -Continue twice daily enoxaparin for DVT prophylaxis -Continue levothyroxine Time Spent With Patient Time: Total time spent is greater than 50% in coordination of care (as documented) at patient's floor/unit and/or counseling patient: Total time spent with greater than 50% in coordination of care (as documented) at patient's floor/unit and/or counseling patient:: Greater than 35 minutes QUALITY VTE Deep Vein Thrombosis/Pulmonary Embolism Present on Admission: No
[2021-03-24] MEDS ORDERED: ACETAMINOPHEN 325 MG TABLET PO PRN (23:30)
[2021-03-24] MEDS ORDERED: NEUTRA PHOS 1 PACKET PO PRN (23:30)
[2021-03-24] MEDS ORDERED: BISACODYL 10 MG SUPP.RECT PR PRN (23:30)
[2021-03-24] MEDS ORDERED: POTASSIUM CHLORIDE 40 MEQ in DEXTROSE 5% IN WATER 500 ML IV PRN (23:30)
[2021-03-24] MEDS ORDERED: ONDANSETRON 4 MG/2 ML VIAL IV PRN (23:30)
[2021-03-24] MEDS ORDERED: MELATONIN 3 MG TABLET PO PRN (23:30)
[2021-03-24] MEDS ORDERED: POTASSIUM CHLORIDE 20 MEQ PACKET PO PRN (23:30)
[2021-03-24] MEDS ORDERED: POLYETHYLENE GLYCOL 3350 17 GM PACKET PO PRN (23:30)
[2021-03-24] MEDS ORDERED: ALBUTEROL SULFATE 200 PUFF INHALER INH PRN (23:30)
[2021-03-24] MEDS ORDERED: LORazepam 2 MG/ML VIAL IV PRN (23:30)
[2021-03-24] MEDS ORDERED: ONDANSETRON 4 MG ODT TABLET SL PRN (23:30)
[2021-03-24] MEDS ORDERED: MAGNESIUM SULFATE 2 GM/50 ML BAG IV PRN (23:30)
[2021-03-24] MEDS ORDERED: ACETAMINOPHEN 650 MG/65 ML BAG IV PRN (23:30)
[2021-03-24] MEDS ORDERED: HALOPERIDOL LACTATE 5 MG/ML VIAL IV ONE (23:46)
[2021-03-24] MEDS ORDERED: HALOPERIDOL LACTATE 5 MG/ML VIAL ONE (23:52)
[2021-03-25] MEDS: 0.9 % SODIUM CHLORIDE 10 ML SYRINGE IV SCH ×3 (05:05→21:38)
[2021-03-25 06:50] LABS: Basophils # (Auto) 0.02 K/mcL (0.00-0.20); Basophils % (Auto) 0.2 % (0.0-2.0); Eosinophils # (Auto) 0.08 K/mcL (0.00-0.70); Hematocrit 46.4 % (41.0-55.0); Hemoglobin 14.8 g/dL (13.5-16.5); Lymphocytes # (Auto) 0.39 K/mcL (1.50-4.80); Lymphocytes % (Auto) 4.7 % (15.0-49.0); Mean Cell Volume 85.5 fL (80.0-100.0); Mean Corpuscular HGB Conc 31.9 g/dL (31.0-36.0); Mean Platelet Volume 9.8 fL (7.4-10.4); Monocytes # (Auto) 1.07 K/mcL (0.10-0.90); Neutrophils % (Auto) 81.1 % (38.0-78.0); Platelet Count 565 K/mcL (140-440); RBC 5.43 M/mcL (4.50-5.90); Red Cell Distribution Width 14.8 % (11.5-14.5); WBC 8.2 K/mcL (4.5-11.0)
[2021-03-25 07:08] LABS: ALT/SGPT 33 U/L (<40); AST/SGOT 20 U/L (<40); Albumin 2.6 gm/dL (3.2-5.2); Albumin/Globulin Ratio 0.7 (1.0-2.3); Alkaline Phosphatase 131 U/L (39-117); Bilirubin,Direct 0.3 mg/dL (<0.3); Bilirubin,Total 0.7 mg/dL (0.1-1.0); Blood Urea Nitrogen 17 mg/dL (6-20); Calcium 8.5 mg/dL (8.6-10.4); Carbon Dioxide 21 mmol/L (22-30); Chloride 95 mmol/L (96-108); Globulin 3.6 gm/dL (2.2-3.7); Glomerular Filtration Rate 103; Glucose 104 mg/dL (70-105); Lactate Dehydrogenase 300 U/L (135-225); Phosphorous 3.8 mg/dL (2.5-4.5); Triglycerides 129 mg/dL (<150); Uric Acid 3.9 mg/dL (2.5-8.0)
[2021-03-25] MEDS ORDERED: LEVOTHYROXINE 125 MCG TABLET PO SCH (07:30)
--- NOTE | 2021-03-25 07:54 | XRay Report ---
INDICATION: f/u COVID, confusion TECHNIQUE: AP portable upright chest x-ray COMPARISON: Previous chest x-rays dated 03/23/2021 and 03/20/2021. Previous chest CT scan dated 03/18/2021. FINDINGS: Lungs:Previous CT scan demonstrates extensive groundglass infiltrates within the periphery of both lungs. Groundglass infiltrates are poorly visualized on previous plain film examinations. No pulmonary parenchymal consolidation or mass. No new abnormality. No significant interval change since 03/23/2021 Heart, vascular:No significant cardiomegaly. Pulmonary vascularity is normal. No pulmonary edema or pulmonary congestion Mediastinum, celine:No mediastinal widening. No hilar mass Pleura:No pleural fluid. No pleural-based mass or calcification Skeletal:Negative. IMPRESSION: 1. No acute or focal abnormality. No interval change since 03/23/2021 2. Groundglass infiltrates are well-demonstrated on previous CT scan dated 03/18/2021 but not well-visualized on plain film examination Interpreted and Authenticated by: Jovany Hills 03/25/21
[2021-03-25] MEDS: DOCUSATE SODIUM 100 MG CAPSULE PO SCH ×2 (08:52→21:35)
[2021-03-25] MEDS: ENOXAPARIN 40 MG/0.4 ML SYRINGE SQ SCH ×2 (08:52→21:37)
[2021-03-25] MEDS ORDERED: FUROSEMIDE 20 MG/2 ML VIAL IV SCH (09:00)
[2021-03-25] MEDS ORDERED: MULTIVIT,THER IRON,CA,FA & MIN 1 TABLET PO SCH (09:00)
[2021-03-25] MEDS ORDERED: 0.9 % SODIUM CHLORIDE 500 ML IV ONE (09:56)
--- NOTE | 2021-03-25 11:53 | Internal Med Progress Note ---
SUBJECTIVE Subjective Patient information: Note initiated : 03/25/21 at 11:49 am Service Date, if different from initiated Date: [] Patient: Jovany Motley a 60 y/o M admitted on 03/18/21 for n/v/d. Chief Complaint: [Follow-up hip fracture Interval history: Mr. Motley is a 60 year old M With a history of hypothyroidism/was in his baseline state of health until roughly 10 days prior to presentation became increasingly short of breath/weakness/nausea vomiting. He continued to work with the symptoms however presented today for evaluation as he is unable to function or get around with usual activities. Initial work-up was consistent with sats in 70's, bilateral multifocal chest infiltrates on CT chest. COVID-19 swab positive. Patient was started on remdesivir/dexamethasone. Subsequently hospitalist service consulted. At the time of my evaluation patient is alert and oriented. He is on 2 L oxygen. He denies active distress including headache photophobia endorses to rash on the flexor aspect of right forearm Which he frequently experiences but has not been evaluated by outpatient as outpatient. He denies weight loss endorses diarrhea, persistent nausea over the last few days. He endorses to loss of appetite/fatigue/weakness and low-grade fever. 03/19-patient clinically deteriorating since last night. Currently on noninvasive mechanical ventilation on 50% FiO2. ABG 7.4 on 13 L oxygen. Guarded prognosis. Currently on remdesivir/dexamethasone/empiric antibiotic coverage. Discussed treatment plan with patient. No family members present. Remains high risk mortality 03/20-patient doing better currently on 50% FiO2. Interval chest imaging bilateral infiltrates. On remdesivir/dexamethasone. Start gentle diuresis. Stable labs, white count 6.1, elevated fibrinogen/D-dimer, increased Lovenox to twice daily, sodium improved to 132 LFTs stable 03/21-patient doing a lot better. Overnight on BiPAP and now on trial off on 4 to 5 L oxygen. Responding well to diuretics. Tolerating diet. Feels a lot better. Continue remdesivir/dexamethasone. No overnight fever chills. Ambulating. Mentation at baseline. Stable hemodynamics and labs. 7atient on high flow oxygen by nasal cannula. Tolerating diuresis, running net negative. Continues to feel improved but remains weak and with dyspnea. Phosphorus low today, mild hyponatremia remains. 8/1patient required up to 8 LPM with nasal cannula at high flow overnight. Again improving today, wean down to 2 LPM. Query whether part of his respiratory needs were due to lorazepam for anxiety. Patient very much would like to go home soon. Serum sodium is normalized today, continue to replete mild hypophosphatemia. 8/2patient down to minimal oxygen requirements, saturating okay on room air at rest, requiring 1-2 L with exertion. Feels well. Eating well. Sodium remains normal. Plan to discharge home, continue repleting phosphorus with oral sup plements over the next few days. Home oxygen arranged for discharge. A few hours later, prior to leaving, the patient was quite confused. He is unable to put on his own shirt and get dressed. He did realize that he was confused. ABG showed hypoxia, no hypercarbia. He did desat to 70% with exer tion. Discharge was held, patient continues to be monitored and treated with supplemental oxygen. Laboratory evaluation this morning is generally unrevealing. [facility] became confused again, seem to be associated with desaturations. Repeat chest x-ray this morning without change, no new infiltrate or evidence of bacterial superinfection. Urine analysis ord ered to evaluate for UTI as cause transient confusion, though this does appear to be related to hypoxic episodes. Patient very much wants to leave, I continue to encourage him to remain hospitalized as he is not yet clinically stable. Constitutional Vitals: Vital Signs Temp Pulse Resp BP Pulse Ox 98.5 F 93 H 16 85/65 92 03/25/21 06:53 03/25/21 06:53 03/25/21 06:53 03/25/21 09:06 03/25/21 06:53 Period Temp Pulse Resp BP Sys/Junior Pulse Ox Last 24 Hr 97.0 F-98.5 F 77-101 16-23 78-133/62-93 84-98 Intake and Output 03/24/21 03/25/21 03/25/21 21:59 05:59 13:59 Intake Total 50 480 500 Output Total 125 1 200 Balance -75 479 300 Weight 158 lb 1.6 oz GENERAL: Awake and alert and talkative when I speak to him, though still a little impulsive RESPIRATORY: Clear lung sam bilaterally, unlabored CARDIOVASCULAR: Regular rate and rhythm ABDOMEN: Nondistended, active bowel sounds EXTREMITIES: No edema NEURO: Alert, oriented to self, situation. Speech is fluent. Able to stand by self at bedside. Still impulsive. Intake & Output: Intake & Output 03/24/21 03/25/21 03/25/21 21:59 05:59 13:59 Intake Total 50 480 500 Output Total 125 1 200 Balance -75 479 300 Weight 158 lb 1.6 oz Intake: IV 500 Sodium Chloride 0.9% 500 ml @ 500 Wide Open IV BOLUS ONE Rx#: [id number] Oral 50 480 Output: Void Amount 125 200 # of times incontinent of urine 1 Other: Urine Appearance Clear Urine Color Bright Yellow Light Hattie Urine Odor Normal Strong OBJ DATA Labs CBC & Chem 7: 03/25/21 05:37 03/25/21 05:37 Labs: Abnormal Lab Results 03/25/21 03/25/21 03/24/21 05:37 05:37 09:57 RDW 14.8 H Plt Count 565 H Neut % (Auto) 81.1 H Lymph % (Auto) 4.7 L [place] % (Auto) 13.0 H Lymph # (Auto) 0.39 L [place] # (Auto) 1.07 H Sodium 129 L 130 L Chloride 95 L Carbon Dioxide 21 L Creatinine Glucose 106 H Calcium 8.5 L 8.5 L Phosphorus Direct Bilirubin 0.3 H 0.3 H GGT 78 H 83 H ALT Alkaline Phosphatase 131 H 129 H Lactate Dehydrogenase 300 H 303 H Total Protein Albumin 2.6 L 2.9 L Albumin/Globulin Ratio 0.7 L 0.9 L 03/24/21 03/23/21 03/23/21 09:57 05:25 05:25 RDW 15.2 H 15.0 H Plt Count 536 H 463 H Neut % (Auto) 82.3 H 82.7 H Lymph % (Auto) 6.2 L 5.5 L [place] % (Auto) Lymph # (Auto) 0.53 L 0.52 L [place] # (Auto) 1.08 H Sodium Chloride Carbon Dioxide Creatinine 0.5 L Glucose Calcium 7.9 L Phosphorus 2.4 L Direct Bilirubin GGT 87 H ALT 40 H Alkaline Phosphatase 131 H Lactate Dehydrogenase 307 H Total Protein 5.7 L Albumin 2.5 L Albumin/Globulin Ratio 0.8 L Meds: Medications Acetaminophen (Acetaminophen 325 Mg Tablet) 650 mg PO Q4-6HP PRN; Protocol PRN Reason: Per Pain Protocol/Fever > 101 Albuterol Sulfate (Albuterol Sulfate 200 Puff Inhaler) 1 - 2 puff INH Q4HP PRN PRN Reason: Shortness Of Breath Bisacodyl (Bisacodyl 10 Mg Supp.Rect) 10 mg RI Q2-3DAYS PRN PRN Reason: Constipation Docusate Sodium (Docusate Sodium 100 Mg Capsule) 100 mg PO BID [facility] Last Admin: 03/25/21 08:52 Dose: Not Given Documented by: Enoxaparin Sodium (Enoxaparin 40 Mg/0.4 Ml Syringe) 40 mg SQ BID [facility] Last Admin: 03/25/21 08:52 Dose: 40 mg Documented by: Furosemide (Furosemide 20 Mg/2 Ml Vial) 20 mg IV DAILY [facility] Last Admin: 03/25/21 08:51 Dose: 20 mg Documented by: Acetaminophen (Ofirmev) 650 mg in 65 mls @ 130 mls/hr IV Q6HP PRN; Protocol PRN Reason: Per Pain Protocol/Fever > 101 Magnesium Sulfate (Magnesium Sulfate) 2 gm in 50 mls @ 50 mls/hr IV UD PRN PRN Reason: MG = or < 1.7 Potassium Chloride 40 meq/ (Dextrose) 520 mls @ 130 mls/hr IV UD PRN PRN Reason: K+ = or < 3.5 Iron Carb/Multivit/[place]/Folic Acid (Multivit,Ther Iron,Ca,Fa & Min 1 Tablet) 1 tab PO DAILY [facility] Last Admin: 03/25/21 08:51 Dose: 1 tab Documented by: Levothyroxine Sodium (Levothyroxine 125 Mcg Tablet) 125 mcg PO QAMAC [facility] Last Admin: 03/25/21 08:57 Dose: 125 mcg Documented by: Lorazepam (Lorazepam 2 Mg/Ml Vial) 0.5 - 1 mg IV Q4HP PRN PRN Reason: ANXIETY/SEDATION Melatonin (Melatonin 3 Mg Tablet) 3 mg PO HSP PRN PRN Reason: Insomnia Ondansetron HCl (Ondansetron 4 Mg Odt Tablet) 4 mg SL Q4-6HP PRN; Protocol PRN Reason: Nausea And Vomiting Ondansetron HCl (Ondansetron 4 Mg/2 Ml Vial) 4 mg IV Q4-6HP PRN; Protocol PRN Reason: Nausea And Vomiting Polyethylene Glycol (Polyethylene Glycol 3350 17 Gm Packet) 17 gm PO DAILYP PRN PRN Reason: Constipation Potassium Chloride (Potassium Chloride 20 Meq Packet) 40 meq PO DAILYP PRN PRN Reason: K+ < 3.5 Potassium/Phosphorus/Sodium (Neutra Phos 1 Packet) 2 packet PO DAILYP PRN PRN Reason: Phosphorus less than 2.5 Senna (Sennosides 1 Tablet) 1 tab PO HS [facility]OM[facility] Sodium Chloride (0.9 % Sodium Chloride 10 Ml Syringe) 10 ml IV Q8 [facility] Last Admin: 03/25/21 05:05 Dose: 10 ml Documented by: Imaging and cardiology Chest x-ray: Status: image reviewed by me Additional comments: IMPRESSION: 1. No acute or focal abnormality. No interval change since 03/23/2021 2. Groundglass infiltrates are well-demonstrated on previous CT scan dated 03/18/2021 but not well-visualized on plain film examination A/P Narrative A/P Narrative: Severe COVID-19 with COVID-19 pneumonia Acute hypoxic respiratory failure -Presented with about 10 days of symptoms -Hospitalized 03/18, SARS-CoV-2 positive -Received remdesivir, completed 5 doses -Receiving dexamethasone, day #6 -Initially treated with nasal cannula, subsequently requiring BiPAP -Now tolerating high flow oxygen by nasal cannula 03/22 -Down to 2 LPM 03/23 after increasing oxygen demands overnight -Was saturating in low 90s on room air, only requiring 12 LPM with exertion initially on 03/24 -Subsequently confused 03/24, no hypercarbia Acute confusion -May be related to hypoxia -No hypercarbia on ABG -A.m. labs generally unrevealing Hyponatremia -Likely secondary to pulmonary infection, stable Hypothyroidism -On levothyroxine Plan -Continue to monitor and provide supplemental oxygen -If mental status still waxing and waning, consider CT head -Status post dexamethasone for 7 days, discontinued to see if it may be contributing to mental status -Continue with diuresis as tolerated -Continue with supplemental oxygen by nasal cannula, wean as tolerated -Continue twice daily enoxaparin for DVT prophylaxis -Continue levothyroxine -Home when no longer suffering hypoxia with movement and subsequent confusion Time Spent With Patient Time: Total time spent is greater than 50% in coordination of care (as documen russ) at patient's floor/unit and/or counseling patient: QUALITY VTE Deep Vein Thrombosis/Pulmonary Embolism Present on Admission: No
[2021-03-25 12:42] LABS: Appearance,Urine CLEAR (Clear); Bilirubin,Urine Negative (Negative); Color,Urine YELLOW; Culture Indicated,Urine No; Glucose,Urine (UA) Negative (Negative); Ketones,Urine Negative (Negative); Leukocyte Esterase,Urine Negative /ug (Negative); Nitrate,Urine Negative (Negative); Protein,Urine Negative (Negative); Specific Gravity,Urine 1.009 (1.000-1.035); Urine Blood Negative (Negative); Urobilinogen,Urine Negative
--- NOTE | 2021-03-25 13:40 | Internal Med Progress Note ---
SUBJECTIVE Subjective Patient information: Note initiated : 03/25/21 at 1:35 pm Service Date, if different from initiated Date: [] Patient: Jovany Motley a 60 y/o M admitted on 03/18/21 for n/v/d. Chief Complaint: [] Interval history: Mr. Motley is a 60 year old M With a history of hypothyroidism/was in his baseline state of health until roughly 10 days prior to presentation became increasingly short of breath/weakness/nausea vomiting. He continued to work with the symptoms however presented today for evaluation as he is unable to function or get around with usual activities. Initial work-up was consistent with sats in 70's, bilateral multifocal chest infiltrates on CT chest. COVID-19 swab positive. Patient was started on remdesivir/ dexamethasone. Subsequently hospitalist service consulted. At the time of my evaluation patient is alert and oriented. He is on 2 L oxygen. He denies active distress including headache photophobia endorses to rash on the flexor aspect of right forearm Which he frequently experiences but has not been evaluated by outpatient as outpatient. He denies weight loss endorses diarrhea, persistent nausea over the last few days. He endorses to loss of appetite/fatigue/weakness and low-grade fever. 03/19-patient clinically deteriorating since last night. Currently on noninvasive mechanical ventilation on 50% FiO2. ABG 7.4 on 13 L oxygen. Guarded prognosis. Currently on remdesivir/dexamethasone/empiric antibiotic coverage. Discussed treatment plan with patient. No family members present. Remains high risk mortality 03/20-patient doing better currently on 50% FiO2. Interval chest imaging bilateral infiltrates. On remdesivir/dexamethasone. Start gentle diuresis. Stable labs, white count 6.1, elevated fibrinogen/D-dimer, increased Lovenox to twice daily, sodium improved to 132 LFTs stable 03/21-patient doing a lot better. Overnight on BiPAP and now on trial off on 4 to 5 L oxygen. Responding well to diuretics. Tolerating diet. Feels a lot better. Continue remdesivir/dexamethasone. No overnight fever chills. Ambulating. Mentation at baseline. Stable hemodynamics and labs. 7/31patient on high flow oxygen by nasal cannula. Tolerating diuresis, running net negative. Continues to feel improved but remains weak and with dyspnea. Phosphorus low today, mild hyponatremia remains. 8/1patient required up to 8 LPM with nasal cannula at high flow overnight. Again improving today, wean down to 2 LPM. Query whether part of his respiratory needs were due to lorazepam for anxiety. Patient very much would like to go home soon. Serum sodium is normalized today, continue to replete mild hypophosphatemia. 8/2patient down to minimal oxygen requirements, saturating okay on room air at rest, requiring 1-2 L with exertion. Feels well. Eating well. Sodium remains normal. Plan to discharge home, continue repleting phosphorus with oral supplements over the next few days. Home oxygen arranged for discharge. A few hours later, prior to leaving, the patient was quite confused. He is unable to put on his own shirt and get dressed. He did realize that he was confused. ABG showed hypoxia, no hypercarbia. He did desat to 70% with exertion. Discharge was held, patient continues to be monitored and treated with supplemental oxygen. Laboratory evaluation this morning is generally unrevealing. 8/3transferred to [facility] yesterday evening, became confused again, seem to be associated with desaturations. Repeat chest x-ray this morning without change, no new infiltrate or evidence of bacterial superinfection. Urine analysis ordered to evaluate for UTI as cause transient confusion, though this does appear to be related to hypoxic episodes. Patient very much wants to leave, I continue to encourage him to remain hospitalized as he is not yet clinically stable. 03/26 Constitutional Vitals: Vital Signs Temp Pulse Resp BP Pulse Ox 97.7 F 93 H 16 93/77 93 03/25/21 12:58 03/25/21 12:58 03/25/21 12:58 03/25/21 12:58 03/25/21 12:58 Period Temp Pulse Resp BP Sys/Junior Pulse Ox Last 24 Hr 97.0 F-98.5 F 77-101 16-23 78-133/62-93 84-98 Intake and Output 03/24/21 03/25/21 03/25/21 21:59 05:59 13:59 Intake Total 50 480 500 Output Total 125 1 200 Balance -75 479 300 Weight 71.713 kg Intake & Output: Intake & Output 03/24/21 03/25/21 03/25/21 21:59 05:59 13:59 Intake Total 50 480 500 Output Total 125 1 200 Balance -75 479 300 Weight 71.713 kg Intake: IV 500 Sodium Chloride 0.9% 500 ml @ 500 Wide Open IV BOLUS ONE Rx#: [id number] Oral 50 480 Output: Void Amount 125 200 # of times incontinent of urine 1 Other: Urine Appearance Clear Urine Color Bright Yellow Light Hattie Urine Odor Normal Strong Exam: General: Alert, Awake, No acute Distress Eyes/N/T: EOMI, Head/Neck: neck supple, CV: RRR, No murmurs, Pulm: Clear b/l, no wheezing/rhonchi/rales Abd: soft, nontender, +BS x4 Ext: no clubbing/cyanosis/edema Neuro: Alert, no focal deficits, moves all extremities, Skin: warm/dry OBJ DATA Labs CBC & Chem 7: 03/25/21 05:37 03/25/21 05:37 Labs: Abnormal Lab Results 03/25/21 03/25/21 03/24/21 05:37 05:37 09:57 RDW 14.8 H Plt Count 565 H Neut % (Auto) 81.1 H Lymph % (Auto) 4.7 L [place] % (Auto) 13.0 H Lymph # (Auto) 0.39 L [place] # (Auto) 1.07 H Sodium 129 L 130 L Chloride 95 L Carbon Dioxide 21 L Creatinine Glucose 106 H Calcium 8.5 L 8.5 L Phosphorus Direct Bilirubin 0.3 H 0.3 H GGT 78 H 83 H ALT Alkaline Phosphatase 131 H 129 H Lactate Dehydrogenase 300 H 303 H Total Protein Albumin 2.6 L 2.9 L Albumin/Globulin Ratio 0.7 L 0.9 L 03/24/21 03/23/21 03/23/21 09:57 05:25 05:25 RDW 15.2 H 15.0 H Plt Count 536 H 463 H Neut % (Auto) 82.3 H 82.7 H Lymph % (Auto) 6.2 L 5.5 L [place] % (Auto) Lymph # (Auto) 0.53 L 0.52 L [place] # (Auto) 1.08 H Sodium Chloride Carbon Dioxide Creatinine 0.5 L Glucose Calcium 7.9 L Phosphorus 2.4 L Direct Bilirubin GGT 87 H ALT 40 H Alkaline Phosphatase 131 H Lactate Dehydrogenase 307 H Total Protein 5.7 L Albumin 2.5 L Albumin/Globulin Ratio 0.8 L Meds: Medications Acetaminophen (Acetaminophen 325 Mg Tablet) 650 mg PO Q4-6HP PRN; Protocol PRN Reason: Per Pain Protocol/Fever > 101 Albuterol Sulfate (Albuterol Sulfate 200 Puff Inhaler) 1 - 2 puff INH Q4HP PRN PRN Reason: Shortness Of Breath Bisacodyl (Bisacodyl 10 Mg Supp.Rect) 10 mg KS Q2-3DAYS PRN PRN Reason: Constipation Docusate Sodium (Docusate Sodium 100 Mg Capsule) 100 mg PO BID [facility] Last Admin: 03/25/21 08:52 Dose: Not Given Documented by: Enoxaparin Sodium (Enoxaparin 40 Mg/0.4 Ml Syringe) 40 mg SQ BID [facility] Last Admin: 03/25/21 08:52 Dose: 40 mg Documented by: Furosemide (Furosemide 20 Mg/2 Ml Vial) 20 mg IV DAILY [facility] Last Admin: 03/25/21 08:51 Dose: 20 mg Documented by: Acetaminophen (Ofirmev) 650 mg in 65 mls @ 130 mls/hr IV Q6HP PRN; Protocol PRN Reason: Per Pain Protocol/Fever > 101 Magnesium Sulfate (Magnesium Sulfate) 2 gm in 50 mls @ 50 mls/hr IV UD PRN PRN Reason: MG = or < 1.7 Potassium Chloride 40 meq/ (Dextrose) 520 mls @ 130 mls/hr IV UD PRN PRN Reason: K+ = or < 3.5 Iron Carb/Multivit/[place]/Folic Acid (Multivit,Ther Iron,Ca,Fa & Min 1 Tablet) 1 tab PO DAILY [facility] Last Admin: 03/25/21 08:51 Dose: 1 tab Documented by: Levothyroxine Sodium (Levothyroxine 125 Mcg Tablet) 125 mcg PO QAMAC [facility] Last Admin: 03/25/21 08:57 Dose: 125 mcg Documented by: Lorazepam (Lorazepam 2 Mg/Ml Vial) 0.5 - 1 mg IV Q4HP PRN PRN Reason: ANXIETY/SEDATION Melatonin (Melatonin 3 Mg Tablet) 3 mg PO HSP PRN PRN Reason: Insomnia Ondansetron HCl (Ondansetron 4 Mg Odt Tablet) 4 mg SL Q4-6HP PRN; Protocol PRN Reason: Nausea And Vomiting Ondansetron HCl (Ondansetron 4 Mg/2 Ml Vial) 4 mg IV Q4-6HP PRN; Protocol PRN Reason: Nausea And Vomiting Polyethylene Glycol (Polyethylene Glycol 3350 17 Gm Packet) 17 gm PO DAILYP PRN PRN Reason: Constipation Potassium Chloride (Potassium Chloride 20 Meq Packet) 40 meq PO DAILYP PRN PRN Reason: K+ < 3.5 Potassium/Phosphorus/Sodium (Neutra Phos 1 Packet) 2 packet PO DAILYP PRN PRN Reason: Phosphorus less than 2.5 Senna (Sennosides 1 Tablet) 1 tab PO HS JOMAR Sodium Chloride (0.9 % Sodium Chloride 10 Ml Syringe) 10 ml IV Q8 JOMAR Last Admin: 03/25/21 13:05 Dose: 10 ml Documented by: A/P Narrative A/P Narrative: A: *Severe COVID-19 pneumonia: *Acute hypoxic respiratory failure: -Presented with about 10 days of symptoms -Received remdesivir, completed 5 doses -Initially treated with nasal cannula, subsequently requiring BiPAP, then tolerating high flow 03/22 -Now down to 2 LPM 03/23 after increasing oxygen demands overnight, Was saturating in low 90s on RA -Subsequently confused 03/24, no hypercarbia *Acute confusion: May be related to hypoxia, No hypercarbia on ABG *Hyponatremia: stable *Hypothyroidism: On levothyroxine Plan -Continue to monitor and provide supplemental oxygen -If mental status still waxing and waning, consider CT head -Status post dexamethasone for 7 days, discontinued to see if it may be contributing to mental status -Continue with diuresis as tolerated -Continue with supplemental oxygen by nasal cannula, wean as tolerated -Home when no longer suffering hypoxia with movement and subsequent confusion -ppx: -Continue twice daily enoxaparin for DVT prophylaxis Time Spent With Patient Time: Total time spent is greater than 50% in coordination of care (as documented) at patient's floor/unit and/or counseling patient: QUALITY VTE Deep Vein Thrombosis/Pulmonary Embolism Present on Admission: No
--- NOTE | 2021-03-25 13:46 | Discharge Summary ---
Discharge Provider Provider Patient information: Note initiated : 03/25/21 at 1:45 pm Service Date, if different from initiated Date: [] Patient: Jovany Motley 60 y/o M admitted on 03/18/21 for n/v/d. Chief Complaint: [] Date of admission: 03/18/21 16:30 Discharge date: 03/26/21 Primary care physician: Driss Cotter PA-C Consults: 03/18/21 Consult to Physician [CONS] Stat Comment: Consulting Provider: Magdy Ag Reason For Exam: Physician to Consult Discharge Meds Discharge Medications Home Medications levothyroxine 125 mcg capsule 125 mcg PO QDAY 03/13/21 [History Confirmed 03/18/21 Last Taken Unknown] COURSE Hospital Course Hospital course: Interval history: Mr. Motley is a 60 year old M With a history of hypothyroidism/was in his baseline state of health until roughly 10 days prior to presentation became increasingly short of breath/weakness/nausea vomiting. He continued to work with the symptoms however presented today for evaluation as he is unable to function or get around with usual activities. Initial work-up was consistent with sats in 70's, bilateral multifocal chest infiltrates on CT chest. COVID-19 swab positive. Patient was started on remdesivir/dexamethasone. Subsequently hospitalist service consulted. At the time of my evaluation patient is alert and oriented. He is on 2 L oxygen. He denies active distress including headache photophobia endorses to rash on the flexor aspect of right forearm Which he frequently experiences but has not been evaluated by outpatient as outpatient. He denies weight loss endorses diarrhea, persistent nausea over the last few days. He endorses to loss of appetite/fatigue/weakness and low-grade fever. 03/19-patient clinically deteriorating since last night. Currently on noninvasive mechanical ventilation on 50% FiO2. ABG 7.4 on 13 L oxygen. Guarded prognosis. Currently on remdesivir/dexamethasone/empiric antibiotic coverage. Discussed treatment plan with patient. No family members present. Remains high risk mortality 03/20-patient doing better currently on 50% FiO2. Interval chest imaging bilateral infiltrates. On remdesivir/dexamethasone. Start gentle diuresis. Stable labs, white count 6.1, elevated fibrinogen/D-dimer, increased Lovenox to twice daily, sodium improved to 132 LFTs stable 03/21-patient doing a lot better. Overnight on BiPAP and now on trial off on 4 to 5 L oxygen. Responding well to diuretics. Tolerating diet. Feels a lot better. Continue remdesivir/dexamethasone. No overnight fever chills. Ambulating. Mentation at baseline. Stable hemodynamics and labs. 7/31patient on high flow oxygen by nasal cannula. Tolerating diuresis, running net negative. Continues to feel improved but remains weak and with dyspnea. Phosphorus low today, mild hyponatremia remains. 8/1patient required up to 8 LPM with nasal cannula at high flow overnight. Again improving today, wean down to 2 LPM. Query whether part of his respiratory needs were due to lorazepam for anxiety. Patient very much would like to go home soon. Serum sodium is normalized today, continue to replete mild hypophosphatemia. 8/2patient down to minimal oxygen requirements, saturating okay on room air at rest, requiring 1-2 L with exertion. Feels well. Eating well. Sodium remains normal. Plan to discharge home, continue repleting phosphorus with oral supplements over the next few days. Home oxygen arranged for discharge. A few hours later, prior to leaving, the patient was quite confused. He is unable to put on his own shirt and get dressed. He did realize that he was confused. ABG showed hypoxia, no hypercarbia. He did desat to 70% with exertion. Discharge was held, patient continues to be monitored and treated with supplemental oxygen. Laboratory evaluation this morning is generally unrevealing. 3transferred to [facility] yesterday evening, became confused again, seem to be associated with desaturations. Repeat chest x-ray this morning without change, no new infiltrate or evidence of bacterial superinfection. Urine analysis ordered to evaluate for UTI as cause transient confusion, though this does appear to be related to hypoxic episodes. Patient very much wants to leave, I continue to encourage him to remain hospitalized as he is not yet clinically stable. 03/26 Patient left AMA earlier this morning. Patient high risk for readmission given that he left AMA A/P Narrative: A: *Severe COVID-19 pneumonia: *Acute hypoxic respiratory failure: -Presented with about 10 days of symptoms -Received remdesivir, completed 5 doses -Initially treated with nasal cannula, subsequently requiring BiPAP, then tolerating high flow 7/31 -Now down to 2 LPM 03/23 after increasing oxygen demands overnight, Was saturating in low 90s on RA -Subsequently confused 03/24, no hypercarbia *Acute confusion: May be related to hypoxia, No hypercarbia on ABG *Hyponatremia: stable *Hypothyroidism: On levothyroxin Discharge diagnosis: Covid pneumonia acute hypoxic respite failure altered mental status hyponat Secondary discharge diagnosis: hyponatremia hypothyroidism Time Spent with Patient Time attestation: Total time spent providing and/or coordinating discharge services: Time spent: Greater than 30 minutes EXAM Constitutional Vitals: Temp Pulse Resp BP Pulse Ox 97.7 F 93 H 16 93/77 93 03/25/21 12:58 03/25/21 12:58 03/25/21 12:58 03/25/21 12:58 03/25/21 12:58 Discharge Data Data Completed and Pending Labs on day of discharge: Labs from last 24 hours 03/25/21 03/25/21 03/25/21 11:30 05:37 05:37 WBC 8.2 RBC 5.43 Hgb 14.8 Hct 46.4 MCV 85.5 MCH 27.3 MCHC 31.9 RDW 14.8 H Plt Count 565 H MPV 9.8 Neut % (Auto) 81.1 H Lymph % (Auto) 4.7 L [place] % (Auto) 13.0 H Eos % (Auto) 1.0 Baso % (Auto) 0.2 Lymph # (Auto) 0.39 L [place] # (Auto) 1.07 H Eos # (Auto) 0.08 Baso # (Auto) 0.02 Absolute Neutrophils 6.66 Sodium 129 L Potassium 4.1 Chloride 95 L Carbon Dioxide 21 L Anion Gap 13.0 BUN 17 Creatinine 0.7 GFR Calculation 103 Glucose 104 Uric Acid 3.9 Calcium 8.5 L Phosphorus 3.8 Magnesium 2.3 Total Bilirubin 0.7 Direct Bilirubin 0.3 H GGT 78 H AST 20 ALT 33 Alkaline Phosphatase 131 H Lactate Dehydrogenase 300 H Total Protein 6.2 Albumin 2.6 L Globulin 3.6 Albumin/Globulin Ratio 0.7 L Triglycerides 129 Urine Color Yellow Urine Appearance Clear Urine pH 6.0 Ur Specific [place] 1.009 Urine Protein Negative Urine Glucose (UA) Negative Urine Ketones Negative Urine Occult Blood Negative Urine Nitrate Negative Urine Bilirubin Negative Urine Urobilinogen Negative Ur Leukocyte Esterase Negative Ur Culture Indicated? No Discharge Plan Patient/Caregiver Discharge Instructions Activity: increase activity as tolerated Diet: Regular Diet Instructions: Using Oxygen at Home (GEN), Community Acquired Pneumonia (GEN), Hypoxia (GEN), COVID-19 (Coronavirus Disease 2019)(GEN) Activity Restrictions/Additional Instructions: Your home O2 will be through [facility] Continue with a regular diet, increase activity as tolerated This discharge packet is provided to you to help keep you informed about your care. We want to ensure you get everything you need when you go home. You will also be receiving a call from us in a few days to follow up with you and see how you are doing since your discharge. This gives us a chance to listen to any concerns you maybe experiencing since you were discharged or any additional needs you may have, as well as providing us feedback on your care experience. We strive to always provide excellent care and thank you for your feedback and for choosing [facility]. Prescriptions: Continued levothyroxine 125 mcg capsule 125 mcg PO QDAY RF: 0 Follow Up Plan Follow up with: Driss Cotter PA-C [Primary Care Provider] - 04/02/21 12:45 pm (If you still have Covid symptoms at the time of this appointment, please call to reschedule.) Patient Disposition: Left Against Medical Advice Prognosis: Fair I certify that the patient requires SNF services: No Overall status at discharge: patient is progressing back to baseline Discharge Comment: Patient left AMA QUALITY VTE Deep Vein Thrombosis/Pulmonary Embolism Present on Admission: No
[2021-03-25] MEDS ORDERED: SENNOSIDES 1 TABLET PO SCH (21:00)
[2021-03-26] MEDS: 0.9 % SODIUM CHLORIDE 10 ML SYRINGE IV SCH (04:32)
== END 2021-03-26 05:00 | disposition left against medical advice (07) | DRG 177 ==
LOC: ED 12:02 → ICU 16:30 → MEDSUR 03-24 23:26
PROVIDERS: ADMIT Internal Medicine; ATTEND Internal Medicine